=== PATIENT | female | born 1935 | race Hispanic/Latino ===

== ENCOUNTER 2017-05-07 10:56 | Inpatient (IN) | payer MEDICARE, BC ==
[2017-05-07 10:58] VITALS: BMI 29.2
--- NOTE | 2017-05-07 12:41 | ED PDOC ---
HPI: Trauma/Fall - HPI Time Seen by Provider: 05/07/17 11:08 Chief Complaint (Nursing): Trauma Chief Complaint (Provider): fall History Per: Patient History/Exam Limitations: no limitations Additional Complaint(s): 81yo F in ED for eval of fall injuries sustained yesterday. daughter states fall was witness-fell onto left side of arm, injured face and head. admitted to headache yesterday. n longer c/o VALLECILLO. daughter states pt did not eat well yesterday. admits to left wrist pain/swelling. facial swelling/.bruising to left side negative for: dizziness, nausea vomiting chest pain sob, change in gait, speech mentation weakness in UE/LE. Past Medical History Reviewed: Historical Data, Nursing Documentation, Vital Signs Vital Signs: Last Vital Signs Temp 99.2 F 05/07/17 11:17 Pulse 85 05/07/17 11:17 Resp 18 05/07/17 11:17 BP 153/74 H 05/07/17 11:17 Pulse Ox 100 05/07/17 11:17 - Medical History PMH: No Chronic Diseases - Family History Family History: States: No Known Family Hx - Home Medications Home Medications: Ambulatory Orders Medication Instructions Recorded No Known Home Med 05/07/17 - Allergies Allergies/Adverse Reactions: Allergies Allergy/AdvReac Type Severity Reaction Status Date / Time No Known Allergies Allergy Verified 05/07/17 11:17 Review of Systems ROS Statement: Except As Marked, All Systems Reviewed And Found Negative Constitutional: Negative for: Weakness Musculoskeletal: Positive for: Arm Pain, Leg Pain Physical Exam - Reviewed Nursing Documentation Reviewed: Yes Vital Signs Reviewed: Yes - Physical Exam Appears: Positive for: Well, Non-toxic, No Acute Distress Head Exam: Positive for: ATRAUMATIC, NORMAL INSPECTION, NORMOCEPHALIC Skin: Positive for: Normal Color, Warm, DRY Eye Exam: Positive for: EOMI, PERRL, Other (burising noted to left side of face swelling noted to left side of face. step off noted to left orbital tenenressnoted. no hypehma no subcongjtival hemmorrage noted. ) ENT: Positive for: Normal ENT Inspection, Other (no active bleeding in nares, no defomrity to nasal bridge) Cardiovascular/Chest: Positive for: Regular Rate, Rhythm Respiratory: Positive for: CNT, Normal Breath Sounds Gastrointestinal/Abdominal: Positive for: Normal Exam, Bowel Sounds, Soft Back: Positive for: Normal Inspection Extremity: Positive for: Other (left wrist: swelling, bruising, dec ROM, nuerovasc intact) Neurologic/Psych: Positive for: Alert, Oriented - Laboratory Results Result Diagrams: 05/07/17 12:43 05/07/17 12:43 - ECG O2 Sat by Pulse Oximetry: 100 - Radiology X-Ray: Interpreted by Me (displaced fx to distal radius/ulnar), Read By Radiologist - CT Scan/US head/maxillofacial Other Rad Studies (CT/US): Radiology Report Reviewed (no ICH, Mutiple fx to left sided face) - Progress ED Course And Treament: PT will get xray,of wrist, CT of face/head, pt offered Tylenol but refuses pain control. ice applied to affected area. ptwill get labs and EKG. Pt will be given IV ancef. Pt received consult to help with at home living. pt currently lives alone, daughter is concerned for pt well being and safety home alone. PT is refusing all medical intervention. Pt offered admission for surgical intervention of wrist and for severe anemia(hgb:8.0) and multiple fx with left side of face. but pt is refusing. pt is alert and is able to pass the MMS exam. CN 2-12 is intact. pt with coherent speech. Marquez aware of case. however there is significant concern for pt capacity MD [place]-management advisor will come and evaluate pt capacity to make medical decisions-and has deemed pt unable to make decisions, medically. Pt does not have medical capacity. - Physician Consult Information Outcome Of Conversation: broderick paged. pt will be placed in sugar tong splint.pt will need surgery and has an appointment on may 11 at 830am Medical Decision Making Medical Decision Making: Pt will be admitted for severe symptomatic anemia, multiple facial fractures and wrist fracture to MD Suni with Broderick consult PT will get ATivan 1mg pt is refusing to cooperate with medical testing and treatment. Pt without evidence of entrapment, EOMI and no c/o diplopia. consult made to [facility]. [facility]-spoke with MD Constance ([facility]) states that pt facial fractures can be followed up as an outpt in 1 week. advised pt not to blow nose and to use decongestants. considering pt has other serious conditions that take precedent at this time ie severe anemia and wrist fracture, pt will benefit from being in [facility] as an inpt to attend to more pressing medical conditions and f/u as an outpt with [facility]. pt family understands this. MD Diana made aware. Disposition - Clinical Impression Clinical Impression: Severe anemia, Ulnar fracture, Radius fracture, Head injury, Orbital floor fracture, Maxillary fracture, Hip injury - Patient ED Disposition Is Patient to be Admitted: Yes - Disposition Disposition Time: 16:45 Condition: FAIR - Pt Status Changed To: Hospital Disposition Of: Inpatient - Admit Certification Admit to Inpatient:: After my assessment, the patient will require hospitalization for at least two midnights. This is because of the severity of symptoms shown, intensity of services needed, and/or the medical risk in this patient being treated as an outpatient. - POA Present On Arrival: Falls Or Trauma
--- NOTE | 2017-05-07 12:48 | CT ---
PROCEDURE: CT HEAD WITHOUT CONTRAST. HISTORY: head injury COMPARISON: None available. TECHNIQUE: Axial computed tomography images were obtained through the head/brain without intravenous contrast. Radiation dose: Total exam DLP = 993.49 mGy-cm. This CT exam was performed using one or more of the following dose reduction techniques: Automated exposure control, adjustment of the mA and/or kV according to patient size, and/or use of iterative reconstruction technique. FINDINGS: HEMORRHAGE: No intracranial hemorrhage. BRAIN: No mass effect or edema. Mild atrophy. 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 There are foci of low attenuation at the basal ganglia bilaterally likely representing combination of chronic microvascular ischemic disease and small old lacunar infarcts. VENTRICLES: Unremarkable. No hydrocephalus. CALVARIUM: Unremarkable. PARANASAL SINUSES: There is almost complete opacification of the left maxillary sinus likely due to fracture in the anterior wall of the maxillary sinus and floor of the left orbit. MASTOID AIR CELLS: Partial opacification of the left mastoid is also noted. OTHER FINDINGS: The sella turcica is [id number] enlarged could be due to empty sella variant. IMPRESSION: No evidence of acute intracranial hemorrhage. Findings suspicious for bilateral frontal hygromas. Periventricular foci of hypodensity may represent a combination of chronic microvascular ischemic disease and old lacunar infarcts. Opacification of the left maxillary sinus could be due to fracture and hemorrhage in the maxillary sinus. Partial opacification of the left mastoid.
[2017-05-07 12:51] LABS: BASO % 0.2 % (0.0-2.0); LYMPH # 0.6 K/uL (1.0-4.3); LYMPH % 16.6 % (20.0-40.0); MEAN CELL VOLUME 121.7 fl (81.0-99.0); MEAN CORPUSCULAR HEMOGLOBIN 40.7 pg (27.0-31.0); MEAN CORPUSCULAR HGB CONC 33.4 g/dL (33.0-37.0); MEAN PLATELET VOLUME 10.4 fl (7.2-11.7); MONO # 0.2 K/uL (0.0-0.8); MONO % 4.4 % (0.0-10.0); NEUT # 2.7 K/uL (1.8-7.0); NEUT % 78.8 % (50.0-75.0); NRBC % 0.2 % (0.0-0.0); RBC 1.97 Mil/uL (3.80-5.20); RED CELL DISTRIBUTION WIDTH 18.4 % (11.5-14.5); WHITE BLOOD COUNT 3.4 K/uL (4.8-10.8)
[2017-05-07 13:04] LABS: ALB/GLOB RATIO 1.4 (1.0-2.1); ALBUMIN 4.4 g/dL (3.5-5.0); ALT/SGPT 34 U/L (9-52); AST/SGOT 32 U/L (14-36); BLOOD UREA NITROGEN 26 mg/dl (7-17); CALCIUM 9.1 mg/dL (8.4-10.2); GFR AFRICAN-AMERICAN > 60; GFR NON-AFRICAN AMERICAN > 60
[2017-05-07 13:08] LABS: INR 1.4 (0.9-1.2); PARTIAL THROMBOPLASTIN TIME 26.4 Seconds (25.6-37.1); PROTHROMBIN TIME 15.9 Seconds (9.8-13.1)
--- NOTE | 2017-05-07 13:23 | CT ---
PROCEDURE: CT MAXILLOFACIAL BONES WITHOUT CONTRAST HISTORY: facial injury COMPARISON: None TECHNIQUE: Contiguous axial CT images of the maxillofacial bones were obtained. Coronal and sagittal reformats were generated. Radiation dose: Total exam DLP = 693.28 mGy-cm. This CT exam was performed using one or more of the following dose reduction techniques: Automated exposure control, adjustment of the mA and/or kV according to patient size, and/or use of iterative reconstruction technique. FINDINGS: NASAL BONES: Unremarkable. ORBITS: There is a nondisplaced left orbital floor fracture. There is fracture of the lateral wall of the left orbit, likely along the zygomatic 0 frontal suture line. The suture is minimally diastatic. The orbital floor fracture extends far posteriorly. There is fracture of the lateral wall of the left orbit with displacement. This is contiguous anteriorly with the orbital floor fracture. There is fracture of the anterior wall of the left maxillary sinus, depressed. It is comminuted. It is contiguous with the orbital floor fracture. The lamina papyracea appears intact. The zygomatic arches are intact. PARANASAL SINUSES/ MASTOIDS: Extensive fluid in left maxillary sinus. No evidence of sinusitis elsewhere. MAXILLA: As noted above, fracture anterior left maxillary sinus fracture. Additional fracture described above. MANDIBLE/ TEMPOROMANDIBULAR JOINTS: Unremarkable. SKULL BASE: Unremarkable. TEMPORAL BONES: Soft tissue density in left external auditory canal, possibly cerumen. OTHER FINDINGS: None. IMPRESSION: Multiple left facial fractures including left orbital floor anterior and lateral foster of the left maxillary sinus. Minimal diastases of the left zygomaticofrontal suture. Extensive fluid/blood in left maxillary antrum.
[2017-05-07] MEDS: ceFAZolin 1 GM in Sodium Chloride 0.9% 100 ML IVPB STA ×3 (13:46→14:20)
--- NOTE | 2017-05-07 14:15 | CP.PCM.CON ---
History of Present Illness - History of Present Illness History of Present Illness: Psychiatry Consult called to evaluate for capacity 81yo F in ED for eval of fall injuries sustained yesterday. daughter states fall was witness-fell onto left side of arm, injured face and head. admitted to headache yesterday. n longer c/o VALLECILLO. daughter states pt did not eat well yesterday. Group Product Manager explained to the patient that she needs hospitalization and treatment s/ p fall for arm/face/head injuries and acute anemia. Patient does not believe that she has any signficant medical issues and does not want to stay in the hospital. She was not able to appreciate the severity of her medical condition. She was not able to weigh the risks and benefits of treatment. When asked what could possible happen if she went home without medical treatment , her response was "nothing." A + O x self, [facility], April 2017. -Patient does NOT have capacity to refuse medical treatment at this time. She does not understand the risks of not receiving treatment. Additionally, she does not have anyone who can monitor her at home and her family does not even have keys to her home. Patient has poor insight into her medical issue and need for treatment. -Would recommend inpatient medical hospitalization as recommended by the primary medical team as the patient can does not have capacity to refuse medical treatment at this time. Past Patient History - Past Social History Smoking Status: Never Smoked - PSYCHIATRIC Hx Substance Use: No - SURGICAL HISTORY Hx Surgeries: No Meds Allergies/Adverse Reactions: Allergies Allergy/AdvReac Type Severity Reaction Status Date / Time No Known Allergies Allergy Verified 05/07/17 11:17 - Medications Medications: Current Medications Cefazolin Sodium 1 gm/ Sodium (Chloride) 100 mls @ 100 mls/hr IVPB STAT STA Stop: 05/07/17 14:35 Last Admin: 05/07/17 13:53 Dose: Not Given Results - Vital Signs Recent Vital Signs: Last Vital Signs Temp 99.2 F 05/07/17 11:17 Pulse 85 05/07/17 11:17 Resp 18 05/07/17 11:17 BP 153/74 H 05/07/17 11:17 Pulse Ox 100 05/07/17 14:08 - Labs Result Diagrams: 05/07/17 12:43 05/07/17 12:43 Labs: Laboratory Results - last 24 hr 05/07/17 05/07/1705/07/17 12:43 12:43 12:43 WBC 3.4 L RBC 1.97 L Hgb 8.0 L Hct 24.0 L MCV 121.7 H MCH 40.7 H MCHC 33.4 RDW 18.4 H Plt Count 81 L MPV 10.4 Neut % (Auto) 78.8 H Lymph % (Auto) 16.6 L [place] % (Auto) 4.4 Eos % (Auto) 0.0 Baso % (Auto) 0.2 Neut # 2.7 Lymph # 0.6 L [place] # 0.2 Eos # 0.0 Baso # 0.0 PT 15.9 H INR 1.4 H APTT 26.4 Sodium 144 Potassium 3.9 Chloride 107 Carbon Dioxide 27 Anion Gap 13 BUN 26 H Creatinine 0.7 Est GFR ( Amer) > 60 Est GFR (Non-Af Amer) > 60 Random Glucose 117 H Calcium 9.1 Total Bilirubin 3.4 H AST 32 ALT 34 Alkaline Phosphatase 66 Troponin I 0.0130 Total Protein 7.5 Albumin 4.4 Globulin 3.2 Albumin/Globulin Ratio 1.4
--- NOTE | 2017-05-07 15:02 | RAD ---
PROCEDURE: Left Wrist Radiographs. HISTORY: wrist injury COMPARISON: None. FINDINGS: BONES: Acute comminuted fracture at the distal left radius extending to the articular surface of the radiocarpal joint and associated with mild displaced bony fragment laterally. There is also displaced acute fracture at the styloid process of the distal ulna JOINTS: Normal. No dislocation. SOFT TISSUES: Diffuse soft tissue swelling OTHER FINDINGS: Diffuse osteopenia. IMPRESSION: Acute comminuted fractures at the distal left radius and ulna as described above.
--- NOTE | 2017-05-07 15:03 | RAD ---
PROCEDURE: Radiographs of the Left Forearm HISTORY: arm injury COMPARISON: None available. TECHNIQUE: Frontal and lateral views obtained. FINDINGS: BONES: Acute comminuted displaced fracture at the distal left radius and ulna. JOINT SPACES: Unremarkable. OTHER FINDINGS: None. IMPRESSION: Acute comminuted displaced fracture at the distal left radius and styloid process of the distal ulna.
--- NOTE | 2017-05-07 17:01 | RAD ---
PROCEDURE: Radiographs of the pelvis and bilateral hips HISTORY: hip injury COMPARISON: None. FINDINGS: BONES: Pelvis: Unremarkable. Right hip:Unremarkable. Left hip:No evidence of fracture. Evaluation somewhat limited due to the lack of a true external rotation view. JOINTS: Right hip: Unremarkable. Left hip: Unremarkable. Sacroiliac Joints: Unremarkable. Pubic symphysis: Unremarkable. SOFT TISSUES: Normal. OTHER FINDINGS: None. IMPRESSION: No evidence of fracture or dislocation. Evaluation of left hip is limited as described above.
[2017-05-07 17:24] LABS: IRON 31 ug/dL (37-170)
[2017-05-07 17:33] LABS: % IRON SATURATION 14 % (20-55); TOTAL IRON BINDING CAPACITY 216 ug/dL (250-450)
--- NOTE | 2017-05-07 22:53 | CP.PCM.CON ---
History of Present Illness - History of Present Illness History of Present Illness: 81 Y/O SP FALL WITH HEAD AND LEFT ARM TRAUMA. PT TRIPPED AND FELL. SHE DENIES PALP, LH, DIZZINESS, CP, SOB, PRIOR HX OF CAD OR ARRYTHMIAS. PT DENIES HTN, HIGH CHOL, DM, HOWEVER SHE DOES NOT GO TO DOCTORS FOR EVAL. PT DOES HAVE VISUAL ISSUES AND DOES NOT WEAR HER GLASSES. THIS IS PTS 3RD FALL IN 6 YEARS. CURRENTLY ADMITS TO PAIN IN LEFT FACE AND ARM. Past Patient History - Past Medical History & Family History Past Medical History?: No - Past Social History Smoking Status: Never Smoked - CARDIAC Hx Cardiac Disorders: No - PULMONARY Hx Respiratory Disorders: No - NEUROLOGICAL Hx Neurological Disorder: No - HEENT Hx HEENT Problems: No - RENAL Hx Chronic Kidney Disease: No - ENDOCRINE/METABOLIC Hx Endocrine Disorders: No - HEMATOLOGICAL/ONCOLOGICAL Hx Blood Disorders: No Hx AIDS: No Hx Human Immunodeficiency Virus (HIV): No - INTEGUMENTARY Hx Dermatological Problems: No - MUSCULOSKELETAL/RHEUMATOLOGICAL Hx Musculoskeletal Disorders: No Hx Falls: Yes - GASTROINTESTINAL Hx Gastrointestinal Disorders: No - GENITOURINARY/GYNECOLOGICAL Hx Genitourinary Disorders: No - PSYCHIATRIC Hx Psychophysiologic Disorder: No Hx Substance Use: No - SURGICAL HISTORY Hx Surgeries: No - ANESTHESIA Hx Anesthesia: Yes Hx Anesthesia Reactions: No Hx Malignant Hyperthermia: No Has any member of the family had a problem w/ anesthesia?: No Meds Allergies/Adverse Reactions: Allergies Allergy/AdvReac Type Severity Reaction Status Date / Time No Known Allergies Allergy Verified 05/07/17 11:17 - Medications Medications: Current Medications Acetaminophen (Tylenol 325mg Tab) 650 mg PO Q6 PRN PRN Reason: Pain, moderate (4-7) Last Admin: 05/07/17 20:35 Dose: 650 mg Cyanocobalamin (Vitamin B12 1000 Mcg/Ml Inj) 1,000 mcg IM DAILY PATRICK Last Admin: 05/07/17 22:08 Dose: 1,000 mcg Physical Exam - Constitutional Appears: Unkempt - Head Exam Additional comments: LARGE LEFT FACIAL BRUISE WITH EDEMA. - Eye Exam Eye Exam: Periorbital swelling, Periorbital tenderness - ENT Exam ENT Exam: Mucous Membranes Moist, Normal Exam - Neck Exam Neck exam: Positive for: Normal Inspection. Negative for: Full Rom, Lymphadenopathy, Meningismus, Tenderness, Thyromegaly - Respiratory Exam Respiratory Exam: Clear to Auscultation Bilateral, NORMAL BREATHING PATTERN. absent: Accessory Muscle Use, Chest Wall Tenderness, Decreased Breath Sounds, Prolonged Expiratory Phase, Rales, Rhonchi, Wheezes, Respiratory Distress, Stridor - Cardiovascular Exam Cardiovascular Exam: REGULAR RHYTHM, +S1, +S2, Systolic Murmur. absent: Bradycardia, Tachycardia, Clicks, Diastolic murmur, Gallop, Irregular Rhythm, JVD, RRR, Rubs, +S4 - GI/Abdominal Exam GI & Abdominal Exam: Normal Bowel Sounds, Soft - Rectal Exam Rectal Exam: Deferred - Extremities Exam Additional comments: LUE IS CDI. L KNEE TENDERNESS - Back Exam Back exam: NORMAL INSPECTION. absent: CVA tenderness (L), CVA tenderness (R), FULL ROM, muscle spasm, paraspinal tenderness, rash noted, tenderness, vertebral tenderness - Neurological Exam Neurological exam: Alert, Oriented x3 - Psychiatric Exam Psychiatric exam: Normal Affect, Normal Mood - Skin Skin Exam: Dry, Intact, Normal Color, Warm Results - Vital Signs Recent Vital Signs: Last Vital Signs Temp 98.4 F 05/07/17 20:06 Pulse 72 05/07/17 20:06 Resp 18 05/07/17 20:06 BP 150/74 05/07/17 20:06 Pulse Ox 99 05/07/17 20:06 - Labs Result Diagrams: 05/07/17 12:43 05/07/17 12:43 Labs: Laboratory Results - last 24 hr 05/07/17 05/07/17 05/07/17 14:30 15:52 16:00 Iron 31 L TIBC 216 L % Saturation 14 L Ferritin 231.0 Troponin I Vitamin B12 < 159 L Blood Type A POSITIVE Blood Type Confirm Antibody Screen Negative Crossmatch See Detail BBK History Checked No verified bt 05/07/17 05/07/17 16:59 21:30 Iron TIBC % Saturation Ferritin Troponin I < 0.0120 Vitamin B12 Blood Type Blood Type Confirm A POSITIVE Antibody Screen Crossmatch BBK History Checked Assessment & Plan (1) Fall Status: Acute (2) Elevated BP without diagnosis of hypertension Status: Acute (3) Tachycardia Status: Acute (4) RBBB Status: Acute (5) Head injury Status: Acute (6) Maxillary fracture Status: Acute (7) Orbital floor fracture Status: Acute (8) Radius fracture Status: Acute (9) Severe anemia Status: Acute (10) Ulnar fracture Status: Acute (11) Pancytopenia Status: Acute - Assessment and Plan (Free Text) Plan: PT HAS NO PRIOR CARDIAC WORK UP. THIS EVENT DOES NOT APPEAR TO BE SYNCOPE OR RELATED TO HYPOTENSION ETC.... GIVEN ABN EKG AND BP WILL CHECK ECHO PTS BP MAY BE SECONDARY TO TRAUMA AND PAIN. ADDITIONALLY PT HAS PANCYTOPENIA AND SEVERE FE DEF AND B12 DEF. WOULD CONSIDER HEME CONSULT, FE AND B12 WOULD CONSIDER GENTLE HYDRATION GIVEN PRERENAL STATE WOULD CONSIDER EVAL FOR OSTEOPOROSIS. CONTINUE TELE WILL FOLLOW. NO NEED TO TREAT WITH ANTIHYPERTENSIVE MEDS MONITOR LYTES AND MAG 90 MIN TOTAL CARE TIME.
[2017-05-08 07:50] LABS: HEMOGLOBIN 8.7 g/dL (12.0-16.0); MEAN CELL VOLUME 114.9 fl (81.0-99.0); MEAN CORPUSCULAR HEMOGLOBIN 39.9 pg (27.0-31.0); MEAN CORPUSCULAR HGB CONC 34.8 g/dL (33.0-37.0); RBC 2.18 Mil/uL (3.80-5.20); RED CELL DISTRIBUTION WIDTH 22.3 % (11.5-14.5); WHITE BLOOD COUNT 3.4 K/uL (4.8-10.8)
[2017-05-08 07:57] LABS: ALB/GLOB RATIO 1.3 (1.0-2.1); ALBUMIN 3.6 g/dL (3.5-5.0); ALT/SGPT 33 U/L (9-52); AST/SGOT 28 U/L (14-36); BILIRUBIN,DIRECT 0.5 mg/ml (0.0-0.4); BLOOD UREA NITROGEN 19 mg/dl (7-17); CALCIUM 8.7 mg/dL (8.4-10.2); GFR AFRICAN-AMERICAN > 60; GFR NON-AFRICAN AMERICAN > 60; HDL CHOLESTEROL 30 MG/DL (30-70); MAGNESIUM 2.1 MG/DL (1.6-2.3)
[2017-05-08 08:08] LABS: LDL CHOLESTEROL 68 mg/dL (0-129)
[2017-05-08 08:26] LABS: T3 0.817 nmol/L (1.49-2.60)
--- NOTE | 2017-05-08 10:32 | CARD ---
APPROVED REPORT EKG Measurement Heart [id number] AR [id number] [id number] <Conclusion> Normal sinus rhythm Right bundle branch block Cannot rule out Inferior infarct, age undetermined Abnormal ECG
--- NOTE | 2017-05-08 12:03 | CARD ---
APPROVED REPORT EXAM: Two-dimensional and M-mode echocardiogram with Doppler and color Doppler. Other Information Quality : GoodRhythm : NSR INDICATION Abnormal EKG/Arrhythmia 2D DIMENSIONS IVSd0.78 (0.7-1.1cm)LVDd5.11 (3.9-5.9cm) LVOT Diameter2.01 (1.8-2.4cm)PWd0.94 (0.7-1.1cm) IVSs1.28 (0.8-1.2cm)LVDs3.33 (2.5-4.0cm) FS (%) 34.8 %PWs1.25 (0.8-1.2cm) M-Mode DIMENSIONS Left Atrium (MM)3.56 (2.5-4.0cm)IVSd0.88 (0.7-1.1cm) Aortic Root3.15 (2.2-3.7cm)LVDd6.12 (4.0-5.6cm) Aortic Cusp Exc.1.76 (1.5-2.0cm)PWd0.91 (0.7-1.1cm) IVSs1.97 cmFS (%) 50 % LVDs3.06 (2.0-3.8cm)PWs1.12 cm Mitral Valve MV E Cuzlwngt68.1cm/sMV DECEL [id number] A Wrgiwqxc24.2cm/s MV CPU88qoE/A ratio0.8MVA (PHT)2.91cm2 TDI Lateral E' Peak V12.14cm/sMedial E' Peak V9.13cm/sE/Lateral E'5.0 E/Medial E'6.7 Pulmonary Valve PV Peak Kroxyecf640.4cm/s Tricuspid Valve TR Peak Ckqvuqrv013ew/sRAP PBLOJGSI76qqYlEF Peak Gr.27mmHg JEBC88jyOr LEFT VENTRICLE The Left Ventricle is mildly dilated. There is normal left ventricular wall thickness. The left ventricular function is normal. The left ventricular ejection fraction is - 65-70%. There is normal LV segmental wall motion. Transmitral Doppler flow pattern is Grade I-abnormal relaxation pattern. No left ventricle thrombus noted on this study. There is no ventricular septal defect visualized. There is no left ventricular aneurysm. There is no mass noted in the left ventricle. RIGHT VENTRICLE The right ventricle is normal size. There is normal right ventricular wall thickness. The right ventricular systolic function is normal. ATRIA The left atrium is mildly dilated. There is no thrombus suspected in the left atrium. The right atrium size is normal. The interatrial septum is intact with no evidence for an atrial septal defect. AORTIC VALVE The aortic valve is normal in structure and function. No aortic regurgitation is present. There is no aortic valvular stenosis. MITRAL VALVE The mitral valve is normal in structure and function. There is no evidence of mitral valve prolapse. There is no mitral valve stenosis. Mitral regurgitation is trace. TRICUSPID VALVE The tricuspid valve is normal in structure and function. There is mild tricuspid regurgitation. Right ventricular systolic pressure is estimated at 36 mmHg. There is no tricuspid valve prolapse or vegetation. There is no tricuspid valve stenosis. PULMONIC VALVE The pulmonic valve is not well visualized. There is mild pulmonic valvular regurgitation. GREAT VESSELS The aortic root is normal in size. The IVC collapses <50% with inspiration. PERICARDIAL EFFUSION The pericardium appears normal. There is no pleural effusion. <Conclusion> The Left Ventricle is mildly dilated and has normal wall thickness. The left ventricular function is normal. The left ventricular ejection fraction is - 65-70%. The left atrium is mildly dilated. The mitral, aortic and tricuspid valves are normal. There is trace mitral regurgitation and mild tricuspid regurgitation.
--- NOTE | 2017-05-08 12:25 | CP.PCM.PN ---
Subjective - Date & Time of Evaluation Date of Evaluation: 05/08/17 Time of Evaluation: 15:36 - Subjective Subjective: denies cp or dizziness echo read as nml ef and no sig abn Objective - Vital Signs/Intake and Output Vital Signs (last 24 hours): Temp Pulse Resp BP Pulse Ox 98.9 F 69 18 162/79 H 97 05/08/17 08:00 05/08/17 08:00 05/08/17 08:00 05/08/17 08:00 05/08/17 08:00 - Medications Medications: Current Medications Acetaminophen (Tylenol 325mg Tab) 650 mg PO Q6 PRN PRN Reason: Pain, moderate (4-7) Last Admin: 05/07/17 20:35 Dose: 650 mg Acetaminophen (Tylenol 325mg Tab) 325 mg PO Q4 PRN PRN Reason: Pain, Mild (1-3) Last Admin: 05/08/17 09:57 Dose: 325 mg Cyanocobalamin (Vitamin B12 1000 Mcg/Ml Inj) 1,000 mcg IM DAILY PATRICK Last Admin: 05/08/17 08:57 Dose: 1,000 mcg - Labs Labs: 05/08/17 06:00 05/08/17 06:00 PT 15.9 Seconds (9.8-13.1) H 05/07/17 12:43 INR 1.4 (0.9-1.2) H 05/07/17 12:43 APTT 26.4 Seconds (25.6-37.1) 05/07/17 12:43 Assessment and Plan (1) Fall Status: Acute (2) Elevated BP without diagnosis of hypertension Status: Acute (3) Tachycardia Status: Acute (4) RBBB Status: Acute (5) Head injury Status: Acute (6) Maxillary fracture Status: Acute (7) Orbital floor fracture Status: Acute (8) Radius fracture Status: Acute (9) Severe anemia Status: Acute (10) Ulnar fracture Status: Acute (11) Pancytopenia Status: Acute - Assessment and Plan (Free Text) Plan: echo as above control pain no arrythmias on tele ADDITIONALLY PT HAS PANCYTOPENIA AND SEVERE FE DEF AND B12 DEF. WOULD CONSIDER HEME CONSULT, FE AND B12 WOULD CONSIDER GENTLE HYDRATION GIVEN PRERENAL STATE WOULD CONSIDER EVAL FOR OSTEOPOROSIS. CONTINUE TELE NO NEED TO TREAT WITH ANTIHYPERTENSIVE MEDS MONITOR LYTES AND MAG 90 MIN TOTAL CARE TIME.
[2017-05-08] MEDS ORDERED: Iron Sucrose 100 mg/5 ml Inj IVP SCH (13:15)
--- NOTE | 2017-05-08 13:40 | CP.PCM.HP ---
History of Present Illness - History of Present Illness History of Present Illness: CC: S/P Fall and injury multiple sites. 81 y/o F brought to [facility], [place] by EMS and admitted to hospital due to Multiple Fax associated to tripped and fall at home, sustained day [employer]. Pt fell onto her L body side, there after c/o of pain on L facial and head, L arm and L wrist, L hip. pain was constant, throbbing moderate intensity 4:10 with no relief. Worsening symptoms: Found with severe anemia Hgb: 8.0, WBC: 3.4, headache. Aggravated factor: Multiple Fx. Not eating well from fall date. Pt denied: Fever, chills, n/v/d, abdominal pain, urinary symptoms, dizziness, syncope, SOB, cough, CP, palpitations, sick contact. PMHx: Falls, no chronic disease. Echo showed: LV normal, LVEF: 65-70-%. EKG: Normal sinus rhythm, RBBB. Inferior infarct age undetermined. Head CT: Suspicious for b/l frontal Hygromas. Periventricular foci of hypodensity may represent chronic microvascular ischemic disease and old lacunar infarct. Opacification L Maxillary sinus could be due to fracture and hemorrhage in the area. Forearm X-Ray: Acute comminuted displaced fracture at the distal radius and ulnar. Maxillofacial CT: Multiple L facial fractures including L Orbital floor, anterior and lateral foster of the left Maxillary sinus. Wrist X-Ray: Acute comminute fracture of the distal left radius and ulnar. Hip and Pelvis X-Ray: No Fx. CXR: No active disease. Present on Admission - Present on Admission Any Indicators Present on Admission: No Review of Systems - Constitutional Constitutional: Frequent Falls, Headache, Other (decreased appetite.) - EENT Eyes: Other (negative) Ears: Other (negative) Nose/Mouth/Throat: Other (negative) - Cardiovascular Cardiovascular: Other (negative) - Gastrointestinal Gastrointestinal: Other (negative) - Genitourinary Genitourinary: Other (negative) - Musculoskeletal Musculoskeletal: Other (pain multiple sites 2nd to fall.) - Integumentary Integumentary: Other (negative) - Neurological Neurological: Other (negative) - Psychiatric Psychiatric: Other (negative) - Endocrine Endocrine: Other (negative) - Hematologic/Lymphatic Hematologic: Other (negative) Past Patient History - Past Medical History & Family History Past Medical History?: No Pertinent Family History: Unknown - Past Social History Smoking Status: Never Smoked Alcohol: None Drugs: Denies Home Situation {Lives}: Alone - CARDIAC Hx Cardiac Disorders: No - PULMONARY Hx Respiratory Disorders: No - NEUROLOGICAL Hx Neurological Disorder: No - HEENT Hx HEENT Problems: No - RENAL Hx Chronic Kidney Disease: No - ENDOCRINE/METABOLIC Hx Endocrine Disorders: No - HEMATOLOGICAL/ONCOLOGICAL Hx Blood Disorders: No Hx AIDS: No Hx Human Immunodeficiency Virus (HIV): No - INTEGUMENTARY Hx Dermatological Problems: No - MUSCULOSKELETAL/RHEUMATOLOGICAL Hx Musculoskeletal Disorders: No Hx Falls: Yes - GASTROINTESTINAL Hx Gastrointestinal Disorders: No - GENITOURINARY/GYNECOLOGICAL Hx Genitourinary Disorders: No - PSYCHIATRIC Hx Psychophysiologic Disorder: No Hx Substance Use: No - SURGICAL HISTORY Hx Surgeries: No - ANESTHESIA Hx Anesthesia: Yes Hx Anesthesia Reactions: No Hx Malignant Hyperthermia: No Has any member of the family had a problem w/ anesthesia?: No Meds Allergies/Adverse Reactions: Allergies Allergy/AdvReac Type Severity Reaction Status Date / Time No Known Allergies Allergy Verified 05/07/17 11:17 Physical Exam - Constitutional Appears: Confused - Head Exam Additional comments: L Facial swelling with large L facial bruising. - Eye Exam Eye Exam: Conjunctival injection (L eye), Periorbital swelling - ENT Exam ENT Exam: Normal Oropharynx - Neck Exam Neck exam: Positive for: Normal Inspection - Respiratory Exam Respiratory Exam: NORMAL BREATHING PATTERN - Cardiovascular Exam Cardiovascular Exam: REGULAR RHYTHM - GI/Abdominal Exam GI & Abdominal Exam: Normal Bowel Sounds, Soft - Extremities Exam Extremities exam: Positive for: tenderness (L arm, L wrist, L knee, L hip.) Additional comments: L arm splint with stacy wrap. L arm neuromuscular status distal good. Nails Onycomycosis - Back Exam Back exam: NORMAL INSPECTION - Neurological Exam Neurological exam: Alert (Oriented x2, confused, forgetful) - Psychiatric Exam Psychiatric exam: Normal Mood - Skin Skin Exam: Warm Results - Vital Signs Recent Vital Signs: Last Vital Signs Temp 98.9 F 05/08/17 08:00 Pulse 69 05/08/17 08:00 Resp 18 05/08/17 08:00 BP 162/79 H 05/08/17 08:00 Pulse Ox 97 05/08/17 08:00 reviewed Adiel - Labs Result Diagrams: 05/10/17 16:06 05/08/17 06:00 Labs: Laboratory Results - last 24 hr 05/07/17 05/07/17 05/07/17 14:30 15:52 16:00 WBC RBC Hgb Hct MCV MCH MCHC RDW Plt Count Retic Count Sodium Potassium Chloride Carbon Dioxide Anion Gap BUN Creatinine Est GFR ( Amer) Est GFR (Non-Af Amer) Random Glucose Calcium Magnesium Iron 31 L TIBC 216 L % Saturation 14 L Ferritin 231.0 Total Bilirubin Direct Bilirubin AST ALT Alkaline Phosphatase Lactate Dehydrogenase Troponin I Total Protein Albumin Globulin Albumin/Globulin Ratio Triglycerides Cholesterol LDL Cholesterol Direct HDL Cholesterol Vitamin B12 < 159 L Free T4 Thyroxine (T4) Total T3 TSH 3rd Generation Blood Type A POSITIVE Blood Type Confirm Antibody Screen Negative Crossmatch See Detail BBK History Checked No verified bt 05/07/17 05/07/17 05/08/17 16:59 21:30 06:00 WBC RBC Hgb Hct MCV MCH MCHC RDW Plt Count Retic Count Sodium 143 Potassium 3.5 L Chloride 108 H Carbon Dioxide 29 Anion Gap 10 BUN 19 H Creatinine 0.6 L Est GFR ( Amer) > 60 Est GFR (Non-Af Amer) > 60 Random Glucose 92 Calcium 8.7 Magnesium 2.1 Iron TIBC % Saturation Ferritin Total Bilirubin 3.3 H Direct Bilirubin 0.5 H AST 28 ALT 33 Alkaline Phosphatase 57 Lactate Dehydrogenase 1217 H Troponin I < 0.0120 < 0.0120 Total Protein 6.4 Albumin 3.6 Globulin 2.8 Albumin/Globulin Ratio 1.3 Triglycerides 81 Cholesterol 115 LDL Cholesterol Direct 68 HDL Cholesterol 30 Vitamin B12 Free T4 Thyroxine (T4) 6.20 Total T3 0.817 L TSH 3rd Generation 3.59 Blood Type Blood Type Confirm A POSITIVE Antibody Screen Crossmatch BBK History Checked 05/08/17 05/08/17 06:00 06:00 WBC 3.4 L RBC 2.18 L Hgb 8.7 L Hct 25.0 L MCV 114.9 H D MCH 39.9 H MCHC 34.8 RDW 22.3 H Plt Count 61 L D Retic Count 0.9 Sodium Potassium Chloride Carbon Dioxide Anion Gap BUN Creatinine Est GFR ( Amer) Est GFR (Non-Af Amer) Random Glucose Calcium Magnesium Iron TIBC % Saturation Ferritin Total Bilirubin Direct Bilirubin AST ALT Alkaline Phosphatase Lactate Dehydrogenase Troponin I Total Protein Albumin Globulin Albumin/Globulin Ratio Triglycerides Cholesterol LDL Cholesterol Direct HDL Cholesterol Vitamin B12 Free T4 0.85 Thyroxine (T4) Total T3 TSH 3rd Generation Blood Type Blood Type Confirm Antibody Screen Crossmatch BBK History Checked reviewed J.P. - EKG Data EKG comments: reviewed J.P. - Imaging and Cardiology Chest x-ray Status: Report reviewed by me (Adiel) CT scan - head Status: Report reviewed by me (EnzoPErnestina) Additional comment: Echo, Maxillary CT, Forearm X Ray, all reviewed J.P. Assessment & Plan (1) Fall Status: Acute Priority: High (2) Head injury Status: Acute Priority: High (3) Hip injury Status: Acute Priority: High (4) Maxillary fracture Status: Acute Priority: High (5) Orbital floor fracture Status: Acute Priority: High (6) Radius fracture Status: Acute Priority: High (7) Ulnar fracture Status: Acute (8) Macrocytic anemia Status: Acute Priority: High (9) Elevated BP without diagnosis of hypertension Status: Acute Priority: High - Assessment and Plan (Free Text) Plan: Pt had 2 U PRBC and Hgb increased from 8.0 to to 8.7, Continue Tylenol and rest of Tx, Psychiatric and Cardiology consult appreciated, Ortho, GI and Hematology consult. - Date & Time Date: 05/08/17 Time: 13:00
--- NOTE | 2017-05-08 14:58 | RAD ---
HISTORY: NEW ADMIT COMPARISON: No prior. FINDINGS: LUNGS: No active pulmonary disease. PLEURA: No significant pleural effusion identified, no pneumothorax apparent. CARDIOVASCULAR: Normal. OSSEOUS STRUCTURES: No significant abnormalities. VISUALIZED UPPER ABDOMEN: Normal. OTHER FINDINGS: None. IMPRESSION: No active disease.
[2017-05-08 17:14] LABS: FOLATE 15.6 ng/mL
--- NOTE | 2017-05-09 01:02 | CP.PCM.CON ---
History of Present Illness - History of Present Illness History of Present Illness: 81 yo female admitted after falling at home and experiencing facial trauma. Found to have a macrocytic anemia/ Review of Systems - Review of Systems Systems not reviewed;Unavailable: Altered Mental Status Past Patient History - Past Medical History & Family History Past Medical History?: No - Past Social History Smoking Status: Never Smoked - CARDIAC Hx Cardiac Disorders: No - PULMONARY Hx Respiratory Disorders: No - NEUROLOGICAL Hx Neurological Disorder: No - HEENT Hx HEENT Problems: No - RENAL Hx Chronic Kidney Disease: No - ENDOCRINE/METABOLIC Hx Endocrine Disorders: No - HEMATOLOGICAL/ONCOLOGICAL Hx Blood Disorders: No Hx AIDS: No Hx Human Immunodeficiency Virus (HIV): No - INTEGUMENTARY Hx Dermatological Problems: No - MUSCULOSKELETAL/RHEUMATOLOGICAL Hx Musculoskeletal Disorders: No Hx Falls: Yes - GASTROINTESTINAL Hx Gastrointestinal Disorders: No - GENITOURINARY/GYNECOLOGICAL Hx Genitourinary Disorders: No - PSYCHIATRIC Hx Psychophysiologic Disorder: No Hx Substance Use: No - SURGICAL HISTORY Hx Surgeries: No - ANESTHESIA Hx Anesthesia: Yes Hx Anesthesia Reactions: No Hx Malignant Hyperthermia: No Has any member of the family had a problem w/ anesthesia?: No Meds Allergies/Adverse Reactions: Allergies Allergy/AdvReac Type Severity Reaction Status Date / Time No Known Allergies Allergy Verified 05/07/17 11:17 - Medications Medications: Current Medications Acetaminophen (Tylenol 325mg Tab) 650 mg PO Q6 PRN PRN Reason: Pain, moderate (4-7) Last Admin: 05/07/17 20:35 Dose: 650 mg Acetaminophen (Tylenol 325mg Tab) 325 mg PO Q4 PRN PRN Reason: Pain, Mild (1-3) Last Admin: 05/08/17 20:45 Dose: 325 mg Cyanocobalamin (Vitamin B12 1000 Mcg/Ml Inj) 1,000 mcg IM DAILY [facility] Last Admin: 05/08/17 08:57 Dose: 1,000 mcg Epoetin Ifeanyi (Procrit) 10,000 unit [place] [facility] [place] Sucrose 100 mg/ Sodium (Chloride) 105 mls @ 105 mls/hr IVPB DAILY [facility] Last Admin: 05/08/17 16:30 Dose: 105 mls/hr Physical Exam - Head Exam Additional comments: ecchymosis present due to falls - Eye Exam Eye Exam: Normal appearance Pupil Exam: PERRL - ENT Exam ENT Exam: Normal Exam - Neck Exam Neck exam: Positive for: Normal Inspection - Respiratory Exam Respiratory Exam: Clear to Auscultation Bilateral - Cardiovascular Exam Cardiovascular Exam: REGULAR RHYTHM - GI/Abdominal Exam GI & Abdominal Exam: Normal Bowel Sounds, Soft. absent: Tenderness Results - Vital Signs Recent Vital Signs: Last Vital Signs Temp 98.8 F 05/08/17 23:49 Pulse 63 05/08/17 23:49 Resp 19 05/08/17 23:49 BP 159/71 H 05/08/17 23:49 Pulse Ox 97 05/08/17 23:49 - Labs Result Diagrams: 05/08/17 06:00 05/08/17 06:00 Labs: Laboratory Results - last 24 hr 05/07/17 05/08/17 05/08/17 15:52 06:00 06:00 WBC 3.4 L RBC 2.18 L Hgb 8.7 L Hct 25.0 L MCV 114.9 H D MCH 39.9 H MCHC 34.8 RDW 22.3 H Plt Count 61 L D Retic Count 0.9 Sodium 143 Potassium 3.5 L Chloride 108 H Carbon Dioxide 29 Anion Gap 10 BUN 19 H Creatinine 0.6 L Est GFR ( Amer) > 60 Est GFR (Non-Af Amer) > 60 Random Glucose 92 Calcium 8.7 Magnesium 2.1 Total Bilirubin 3.3 H Direct Bilirubin 0.5 H AST 28 ALT 33 Alkaline Phosphatase 57 Lactate Dehydrogenase 1217 H Troponin I < 0.0120 Total Protein 6.4 Albumin 3.6 Globulin 2.8 Albumin/Globulin Ratio 1.3 Triglycerides 81 Cholesterol 115 LDL Cholesterol Direct 68 HDL Cholesterol 30 Folate 15.6 Free T4 Thyroxine (T4) 6.20 Total T3 0.817 L TSH 3rd Generation 3.59 Blood Type A POSITIVE Antibody Screen Negative Crossmatch See Detail BBK History Checked No verified bt 05/08/17 06:00 WBC RBC Hgb Hct MCV MCH MCHC RDW Plt Count Retic Count Sodium Potassium Chloride Carbon Dioxide Anion Gap BUN Creatinine Est GFR ( Amer) Est GFR (Non-Af Amer) Random Glucose Calcium Magnesium Total Bilirubin Direct Bilirubin AST ALT Alkaline Phosphatase Lactate Dehydrogenase Troponin I Total Protein Albumin Globulin Albumin/Globulin Ratio Triglycerides Cholesterol LDL Cholesterol Direct HDL Cholesterol Folate Free T4 0.85 Thyroxine (T4) Total T3 TSH 3rd Generation Blood Type Antibody Screen Crossmatch BBK History Checked Assessment & Plan (1) Macrocytic anemia Assessment and Plan: Macrocytic anemia due to low B12. B12 replenishment as per Hematology Status: Acute - Date & Time Date: 05/08/17 Time: 23:45
--- NOTE | 2017-05-09 12:19 | CP.PCM.PN ---
Subjective - Date & Time of Evaluation Date of Evaluation: 05/09/17 Time of Evaluation: 10:15 - Subjective Subjective: F/U Multiple Fx 2nd to s/p fall. Pt no c/o of pain in wrist of face. Objective - Vital Signs/Intake and Output Vital Signs (last 24 hours): Temp Pulse Resp BP Pulse Ox 98.9 F 74 18 175/91 H 97 05/09/17 09:00 05/09/17 09:00 05/09/17 09:00 05/09/17 09:00 05/09/17 09:00 - Medications Medications: Current Medications Acetaminophen (Tylenol 325mg Tab) 650 mg PO Q6 PRN PRN Reason: Pain, moderate (4-7) Last Admin: 05/07/17 20:35 Dose: 650 mg Acetaminophen (Tylenol 325mg Tab) 325 mg PO Q4 PRN PRN Reason: Pain, Mild (1-3) Last Admin: 05/08/17 20:45 Dose: 325 mg Cyanocobalamin (Vitamin B12 1000 Mcg/Ml Inj) 1,000 mcg IM DAILY [facility] Last Admin: 05/09/17 09:16 Dose: 1,000 mcg Epoetin Ifeanyi (Procrit) 10,000 unit SC MWF [facility] Iron Sucrose 100 mg/ Sodium (Chloride) 105 mls @ 105 mls/hr IVPB DAILY [facility] Last Admin: 05/09/17 09:15 Dose: 105 mls/hr Valsartan (Diovan) 80 mg PO DAILY [facility] Last Admin: 05/09/17 11:34 Dose: 80 mg - Labs Labs: 05/08/17 06:00 05/08/17 06:00 PT 15.9 Seconds (9.8-13.1) H 05/07/17 12:43 INR 1.4 (0.9-1.2) H 05/07/17 12:43 APTT 26.4 Seconds (25.6-37.1) 05/07/17 12:43 - Constitutional Appears: No Acute Distress - Head Exam Additional comments: L facial swelling with large facial bruising - Eye Exam Eye Exam: Conjunctival injection, Periorbital swelling (and tenderness L eye) - ENT Exam ENT Exam: Normal Oropharynx - Neck Exam Neck Exam: Normal Inspection - Respiratory Exam Respiratory Exam: NORMAL BREATHING PATTERN - Cardiovascular Exam Cardiovascular Exam: REGULAR RHYTHM - GI/Abdominal Exam GI & Abdominal Exam: Soft, Normal Bowel Sounds - Extremities Exam Extremities Exam: Tenderness (L arm, L wrist, L knee, L hip) Additional comments: L arm with splint with stacy wrap, neuromuscular status distal good. Nails Onycomycosis. - Back Exam Back Exam: NORMAL INSPECTION - Neurological Exam Neurological Exam: Alert Additional comments: Oriented x2, confused, forgetful. - Psychiatric Exam Psychiatric exam: Normal Mood - Skin Skin Exam: Warm Assessment and Plan (1) Elevated BP without diagnosis of hypertension Status: Acute (2) Fall Status: Acute (3) Head injury Status: Acute (4) Hip injury Status: Acute (5) Macrocytic anemia Status: Acute (6) Maxillary fracture Status: Acute (7) Orbital floor fracture Status: Acute (8) Radius fracture Status: Acute (9) Ulnar fracture Status: Acute - Assessment and Plan (Free Text) Plan: Discussed with Orthopedic Surgeon Pt can be Tx with cast, f/u Maxillofacial , Procrit, Venofer , Vit B12 and rest of tx.
--- NOTE | 2017-05-09 18:56 | CP.PCM.CON ---
History of Present Illness - History of Present Illness History of Present Illness: 81 year old female with no past medical history, admitted s/p fall, found to have pancytopenia. Per the patients daughter, she was seen walking and tripped. She fell on her right arm and struck her face on the ground. She denies loss of consciousness or dizzyness. In the ER she was found to have pancytopenia and low B12 level. Her daughter notes she has not been eating well in the last 6 months due to diminished appetite. The patient lives alone and her daughter is planning to relocate her mother with her. Past medical history: None Past surgical history: None Family history: Denies hematologic and oncologic problems Social history: Denies tobacco, alcohol, and illicit drug use. Allergies: NKA Review of systems: All remaining review of systems including HEENT, cardiovascular, respiratory, gastrointestinal, genitourinary, musculoskeletal, dermatologic, neurologic, and psychiatric are negative unless mentioned in the HPI. Past Patient History - Past Medical History & Family History Past Medical History?: No - Past Social History Smoking Status: Never Smoked Alcohol: None Drugs: Denies Home Situation {Lives}: Alone - CARDIAC Hx Cardiac Disorders: No - PULMONARY Hx Respiratory Disorders: No - NEUROLOGICAL Hx Neurological Disorder: No - HEENT Hx HEENT Problems: No - RENAL Hx Chronic Kidney Disease: No - ENDOCRINE/METABOLIC Hx Endocrine Disorders: No - HEMATOLOGICAL/ONCOLOGICAL Hx Blood Disorders: No Hx AIDS: No Hx Human Immunodeficiency Virus (HIV): No - INTEGUMENTARY Hx Dermatological Problems: No - MUSCULOSKELETAL/RHEUMATOLOGICAL Hx Musculoskeletal Disorders: No Hx Falls: Yes - GASTROINTESTINAL Hx Gastrointestinal Disorders: No - GENITOURINARY/GYNECOLOGICAL Hx Genitourinary Disorders: No - PSYCHIATRIC Hx Psychophysiologic Disorder: No Hx Substance Use: No - SURGICAL HISTORY Hx Surgeries: No - ANESTHESIA Hx Anesthesia: Yes Hx Anesthesia Reactions: No Hx Malignant Hyperthermia: No Has any member of the family had a problem w/ anesthesia?: No Meds Allergies/Adverse Reactions: Allergies Allergy/AdvReac Type Severity Reaction Status Date / Time No Known Allergies Allergy Verified 05/07/17 11:17 - Medications Medications: Current Medications Acetaminophen (Tylenol 325mg Tab) 650 mg PO Q6 PRN PRN Reason: Pain, moderate (4-7) Last Admin: 05/07/17 20:35 Dose: 650 mg Acetaminophen (Tylenol 325mg Tab) 325 mg PO Q4 PRN PRN Reason: Pain, Mild (1-3) Last Admin: 05/08/17 20:45 Dose: 325 mg Cyanocobalamin (Vitamin B12 1000 Mcg/Ml Inj) 1,000 mcg IM DAILY [facility] Last Admin: 05/09/17 09:16 Dose: 1,000 mcg Epoetin Ifeanyi (Procrit) 10,000 unit SC MWF [facility] Iron Sucrose 100 mg/ Sodium (Chloride) 105 mls @ 105 mls/hr IVPB DAILY [facility] Last Admin: 05/09/17 09:15 Dose: 105 mls/hr Valsartan (Diovan) 80 mg PO DAILY [facility] Last Admin: 05/09/17 11:34 Dose: 80 mg Physical Exam - Head Exam Head Exam: ATRAUMATIC - Eye Exam Eye Exam: Normal appearance - ENT Exam ENT Exam: Mucous Membranes Dry - Respiratory Exam Respiratory Exam: NORMAL BREATHING PATTERN - Cardiovascular Exam Cardiovascular Exam: +S1, +S2 - GI/Abdominal Exam GI & Abdominal Exam: Normal Bowel Sounds - Extremities Exam Additional comments: left arm dressing - Neurological Exam Neurological exam: Oriented x3 - Psychiatric Exam Psychiatric exam: Normal Affect, Normal Mood - Skin Skin Exam: Warm Results - Vital Signs Recent Vital Signs: Last Vital Signs Temp 98.8 F 05/09/17 16:24 Pulse 74 05/09/17 16:24 Resp 18 05/09/17 16:24 BP 129/76 05/09/17 16:24 Pulse Ox 95 05/09/17 16:24 - Labs Result Diagrams: 05/08/17 06:00 05/08/17 06:00 Assessment & Plan (1) Pancytopenia Assessment and Plan: likely related to severe B12 deficiency agree with IM b12 supplementation daily normal iron and folate stores if counts do not improve in 1-2 weeks with B12 supplementation, will require a bone marrow biopsy for further evaluation Thank you for this interesting consult. Status: Acute
--- NOTE | 2017-05-09 22:46 | CP.PCM.PN ---
Subjective - Date & Time of Evaluation Date of Evaluation: 05/09/17 Time of Evaluation: 17:30 - Subjective Subjective: NO LH, DIZZINESS, PALP, CP, SOB Objective - Vital Signs/Intake and Output Vital Signs (last 24 hours): Temp Pulse Resp BP Pulse Ox 97.6 F 72 16 162/81 H 95 05/09/17 20:01 05/09/17 20:01 05/09/17 20:01 05/09/17 20:01 05/09/17 20:01 Intake and Output: 05/09/17 05/10/17 18:59 06:59 Intake Total 400 Balance 400 - Medications Medications: Current Medications Acetaminophen (Tylenol 325mg Tab) 650 mg PO Q6 PRN PRN Reason: Pain, moderate (4-7) Last Admin: 05/07/17 20:35 Dose: 650 mg Acetaminophen (Tylenol 325mg Tab) 325 mg PO Q4 PRN PRN Reason: Pain, Mild (1-3) Last Admin: 05/08/17 20:45 Dose: 325 mg Cyanocobalamin (Vitamin B12 1000 Mcg/Ml Inj) 1,000 mcg IM DAILY [facility] Last Admin: 05/09/17 09:16 Dose: 1,000 mcg Epoetin Ifeanyi (Procrit) 10,000 unit SC F [facility] Iron Sucrose 100 mg/ Sodium (Chloride) 105 mls @ 105 mls/hr IVPB DAILY [facility] Last Admin: 05/09/17 09:15 Dose: 105 mls/hr Valsartan (Diovan) 80 mg PO DAILY [facility] Last Admin: 05/09/17 11:34 Dose: 80 mg - Labs Labs: 05/08/17 06:00 05/08/17 06:00 PT 15.9 Seconds (9.8-13.1) H 05/07/17 12:43 INR 1.4 (0.9-1.2) H 05/07/17 12:43 APTT 26.4 Seconds (25.6-37.1) 05/07/17 12:43 Assessment and Plan (1) Fall Status: Acute (2) Elevated BP without diagnosis of hypertension Status: Acute (3) Tachycardia Status: Acute (4) RBBB Status: Acute (5) Head injury Status: Acute (6) Maxillary fracture Status: Acute (7) Orbital floor fracture Status: Acute (8) Radius fracture Status: Acute (9) Ulnar fracture Status: Acute (10) Pancytopenia Status: Acute
[2017-05-10 06:10] LABS: BASO % 0.5 % (0.0-2.0); EOS # 0.1 K/uL (0.0-0.7); EOS % 2.7 % (0.0-4.0); HEMOGLOBIN 10.7 g/dL (12.0-16.0); LYMPH # 1.3 K/uL (1.0-4.3); LYMPH % 31.7 % (20.0-40.0); MEAN CELL VOLUME 110.8 fl (81.0-99.0); MEAN CORPUSCULAR HEMOGLOBIN 37.3 pg (27.0-31.0); MEAN CORPUSCULAR HGB CONC 33.6 g/dL (33.0-37.0); MEAN PLATELET VOLUME 9.6 fl (7.2-11.7); MONO # 0.4 K/uL (0.0-0.8); MONO % 10.9 % (0.0-10.0); NEUT # 2.2 K/uL (1.8-7.0); NEUT % 54.2 % (50.0-75.0); NRBC % 0.1 % (0.0-0.0); RBC 2.86 Mil/uL (3.80-5.20); RED CELL DISTRIBUTION WIDTH 23.9 % (11.5-14.5)
[2017-05-10] MEDS: EPOETIN ALFA 10,000 UNIT/ML ML SC SCH (09:07)
--- NOTE | 2017-05-10 11:17 | US ---
PROCEDURE: Carotid vertebral duplex sonography HISTORY: S/P FALL COMPARISON: None available. TECHNIQUE: Grayscale, color Doppler and spectral Doppler assessment of the carotid system bilaterally. This includes common carotid, internal carotid arteries Vertebral artery assessment with respect to direction of flow (antegrade or retrograde) FINDINGS: RIGHT carotid system: Assessment of plaque: Heterogeneous plaque formation. Peak systolic ICA velocity: 82.0 cm/sec End-diastolic velocity: 26.0 cm/sec ICA/CCA ratio: 0.9 Vertebral artery flow: Antegrade LEFT carotid system: Assessment of plaque: Heterogeneous plaque formation. Peak systolic ICA velocity: 85.4 cm/sec End-diastolic velocity: 25.7 cm/sec ICA/CCA ratio: 0.9 Vertebral artery flow: Antegrade IMPRESSION: Right ICA degree of stenosis: Less than 50% Left ICA degree of stenosis: Less than 50% Reference Internal Carotid Artery (ICA) Peak Systolic Velocity (PSV) for above: 1. Less than 50% stenosis less than 125 cm/s peak systolic velocity 2. 50-69% stenosis 125-230cm/s peak systolic velocity 3. Greater than 70% but less than near occlusion greater than 230 cm/s peak systolic velocity
--- NOTE | 2017-05-10 15:03 | CP.PCM.PN ---
Subjective - Date & Time of Evaluation Date of Evaluation: 05/10/17 Time of Evaluation: 11:30 - Subjective Subjective: F/U Multiple Injury s/p fall. Pt with no A/D, c/o of pain in L wrist only, no facial pain. Objective - Vital Signs/Intake and Output Vital Signs (last 24 hours): Temp Pulse Resp BP Pulse Ox 98.5 F 82 20 130/75 97 05/10/17 12:00 05/10/17 12:00 05/10/17 12:00 05/10/17 12:00 05/10/17 12:00 Intake and Output: 05/10/17 05/10/17 06:59 18:59 Intake Total 200 Balance 200 - Medications Medications: Current Medications Acetaminophen (Tylenol 325mg Tab) 650 mg PO Q6 PRN PRN Reason: Pain, moderate (4-7) Last Admin: 05/07/17 20:35 Dose: 650 mg Acetaminophen (Tylenol 325mg Tab) 325 mg PO Q4 PRN PRN Reason: Pain, Mild (1-3) Last Admin: 05/08/17 20:45 Dose: 325 mg Artificial Tears (Artificial Tears) 2 drop OU Q4 PRN PRN Reason: Dry eyes Cyanocobalamin (Vitamin B12 1000 Mcg/Ml Inj) 1,000 mcg IM DAILY [facility] Last Admin: 05/10/17 09:07 Dose: 1,000 mcg Epoetin Ifeanyi (Procrit) 10,000 unit SC MWF [facility] Last Admin: 05/10/17 09:07 Dose: 10,000 unit Iron Sucrose 100 mg/ Sodium (Chloride) 105 mls @ 105 mls/hr IVPB DAILY [facility] Last Admin: 05/10/17 09:08 Dose: 105 mls/hr Valsartan (Diovan) 80 mg PO DAILY [facility] Last Admin: 05/10/17 09:07 Dose: 80 mg - Labs Labs: 05/10/17 05:20 05/08/17 06:00 PT 15.9 Seconds (9.8-13.1) H 05/07/17 12:43 INR 1.4 (0.9-1.2) H 05/07/17 12:43 APTT 26.4 Seconds (25.6-37.1) 05/07/17 12:43 - Constitutional Appears: No Acute Distress - Head Exam Head Exam: NORMAL INSPECTION Additional comments: Facial swelling and bruising - Eye Exam Eye Exam: Conjunctival injection (L eye), Periorbital swelling (Left , Pupil Left dilated , non reactive , opacity) - ENT Exam ENT Exam: Normal Oropharynx - Neck Exam Neck Exam: Normal Inspection - Respiratory Exam Respiratory Exam: NORMAL BREATHING PATTERN - Cardiovascular Exam Cardiovascular Exam: REGULAR RHYTHM - GI/Abdominal Exam GI & Abdominal Exam: Soft, Normal Bowel Sounds - Extremities Exam Extremities Exam: Tenderness (L arm and wrist, L knee and L hip) Additional comments: L arm with splint with stacy wrap, neuromuscular status distal good. Nails Onycomycosis. - Back Exam Back Exam: NORMAL INSPECTION - Neurological Exam Neurological Exam: Alert Additional comments: Oriented x 2, confused, forgetful. - Psychiatric Exam Psychiatric exam: Normal Mood - Skin Skin Exam: Warm Assessment and Plan (1) Fall Status: Acute (2) Head injury Status: Acute (3) Hip injury Status: Acute (4) Maxillary fracture Status: Acute (5) Orbital floor fracture Status: Acute (6) Radius fracture Status: Acute (7) Ulnar fracture Status: Acute (8) Macrocytic anemia Status: Acute (9) Pancytopenia Status: Acute (10) Elevated BP without diagnosis of hypertension Status: Acute - Assessment and Plan (Free Text) Plan: To have Fx reduction on Wednesday, continue Iron, Vit. B12, Procrit f/u [facility] Lab Technician. Hematology consult appreciated , no Maxillofacial surgeon available, Pt to be follow as out Pt.
[2017-05-10 16:10] LABS: HEMOGLOBIN 10.6 g/dL (12.0-16.0); MEAN CELL VOLUME 110.5 fl (81.0-99.0); MEAN CORPUSCULAR HEMOGLOBIN 38.6 pg (27.0-31.0); MEAN CORPUSCULAR HGB CONC 34.9 g/dL (33.0-37.0); RBC 2.74 Mil/uL (3.80-5.20); RED CELL DISTRIBUTION WIDTH 24.1 % (11.5-14.5)
[2017-05-10] MEDS: Artificial Tears Opht Soln OU PRN ×2 (16:59→21:01)
--- NOTE | 2017-05-10 21:09 | CON ---
DATE OF CONSULTATION: 05/09/2017 REASON FOR CONSULTATION: Left distal radius fracture. HISTORY OF PRESENT ILLNESS: This is a 81-year-old female who had a mechanical fall last landing onto her left wrist. The patient presented to the emergency room and was admitted to the hospital for workup and low hemoglobin. I was consulted for evaluation of her distal radius. Denies numbness or paresthesia. PHYSICAL EXAMINATION: Wrist, skin is intact. There is mild swelling of the wrist, tender to palpation over the distal radius. The patient can make a full fist. Neurologically intact. No tenderness over the elbow or shoulder area. LABORATORY DATA: X-rays of left wrist personally reviewed and show a comminuted intraarticular distal radius fracture with loss of volar tilt and radial inclination. ASSESSMENT: Left distal radius fracture. PLAN: We discussed above findings with the patient and the daughter. We discussed both surgical and nonsurgical treatment options, risks and benefits of each. The patient elected to undergo closed reduction. I will schedule her for closed reduction pending medical clearance. Gianni Zuñiga MD
--- NOTE | 2017-05-11 09:44 | CP.PCM.CON ---
History of Present Illness - History of Present Illness History of Present Illness: 81 year old female seen at bedside at the request for podiatry consultation. Patient is accompanied by her daughter at bedside. Per patient's daughter, patient is complaining of thickened and elongated nails but is unable to trim them herself due to her injury as patient fell and injured her LUE on . Patient denies N/V/F/D/C/SOB/calf pain. No other pedal complaints at this time. Review of Systems - Review of Systems All systems: reviewed and no additional remarkable complaints except (as per HPI ) Past Patient History - Past Medical History & Family History Past Medical History?: No - Past Social History Smoking Status: Never Smoked Alcohol: None Drugs: Denies Home Situation {Lives}: Alone - CARDIAC Hx Cardiac Disorders: No - PULMONARY Hx Respiratory Disorders: No - NEUROLOGICAL Hx Neurological Disorder: No - HEENT Hx HEENT Problems: No - RENAL Hx Chronic Kidney Disease: No - ENDOCRINE/METABOLIC Hx Endocrine Disorders: No - HEMATOLOGICAL/ONCOLOGICAL Hx Blood Disorders: No Hx AIDS: No Hx Human Immunodeficiency Virus (HIV): No - INTEGUMENTARY Hx Dermatological Problems: No - MUSCULOSKELETAL/RHEUMATOLOGICAL Hx Musculoskeletal Disorders: No Hx Falls: Yes - GASTROINTESTINAL Hx Gastrointestinal Disorders: No - GENITOURINARY/GYNECOLOGICAL Hx Genitourinary Disorders: No - PSYCHIATRIC Hx Psychophysiologic Disorder: No Hx Substance Use: No - SURGICAL HISTORY Hx Surgeries: No - ANESTHESIA Hx Anesthesia: Yes Hx Anesthesia Reactions: No Hx Malignant Hyperthermia: No Has any member of the family had a problem w/ anesthesia?: No Meds Allergies/Adverse Reactions: Allergies Allergy/AdvReac Type Severity Reaction Status Date / Time No Known Allergies Allergy Verified 05/07/17 11:17 - Medications Medications: Current Medications Acetaminophen (Tylenol 325mg Tab) 650 mg PO Q6 PRN PRN Reason: Pain, moderate (4-7) Last Admin: 05/07/17 20:35 Dose: 650 mg Acetaminophen (Tylenol 325mg Tab) 325 mg PO Q4 PRN PRN Reason: Pain, Mild (1-3) Last Admin: 05/10/17 20:59 Dose: 325 mg Artificial Tears (Artificial Tears) 2 drop OU Q4 PRN PRN Reason: Dry eyes Last Admin: 05/10/17 21:01 Dose: 2 drop Cyanocobalamin (Vitamin B12 1000 Mcg/Ml Inj) 1,000 mcg IM DAILY [facility] Last Admin: 05/11/17 09:10 Dose: 1,000 mcg Epoetin Ifeanyi (Procrit) 10,000 unit SC MWF [facility] Last Admin: 05/10/17 09:07 Dose: 10,000 unit Iron Sucrose 100 mg/ Sodium (Chloride) 105 mls @ 105 mls/hr IVPB DAILY [facility] Last Admin: 05/11/17 09:09 Dose: 105 mls/hr Valsartan (Diovan) 80 mg PO DAILY [facility] Last Admin: 05/11/17 09:10 Dose: 80 mg Physical Exam - Constitutional Appears: Well, Non-toxic, No Acute Distress - Extremities Exam Additional comments: Vasc: DP and PT pulses palpable 2/4 b/l. CFT <3 seconds to all digits. TG warm to warm. Mild nonpitting edema noted to BLE Neuro: Gross sensation intact Derm: Nails 1-5 b/l are thickened, elongated, and dystrophic with the presence of subungual debris Ortho: No POP noted to foot b/l - Neurological Exam Neurological exam: Alert, Oriented x3 - Psychiatric Exam Psychiatric exam: Normal Affect, Normal Mood Results - Vital Signs Recent Vital Signs: Last Vital Signs Temp 98.2 F 05/11/17 08:00 Pulse 69 05/11/17 08:00 Resp 18 05/11/17 08:00 BP 153/79 H 05/11/17 08:00 Pulse Ox 96 05/11/17 08:00 - Labs Result Diagrams: 05/10/17 16:06 05/08/17 06:00 Labs: Laboratory Results - last 24 hr 05/10/17 16:06 WBC 5.0 RBC 2.74 L Hgb 10.6 L Hct 30.2 L MCV 110.5 H MCH 38.6 H MCHC 34.9 RDW 24.1 H Plt Count 99 L Assessment & Plan - Assessment and Plan (Free Text) Assessment: 81 year old F with onychomycosis Plan: Patient seen and evaluated at bedside Discussed with attending, Dr. Rivera Chart, labs, vitals reviewed - afebrile Nails 1-5 b/l debrided in thickness and length without incident Stable from podiatry standpoint Thank you for this consult, please re-consult again as needed
--- NOTE | 2017-05-11 19:17 | CP.PCM.PN ---
Subjective - Date & Time of Evaluation Date of Evaluation: 05/11/17 Time of Evaluation: 10:20 - Subjective Subjective: F/U Multiple injury 2nd to S/P Fall Pt no c/o of pain at rest in the L arm and wrist. Objective - Vital Signs/Intake and Output Vital Signs (last 24 hours): Temp Pulse Resp BP Pulse Ox 97.9 F 70 20 113/67 98 05/11/17 15:41 05/11/17 15:41 05/11/17 15:41 05/11/17 15:41 05/11/17 15:41 - Medications Medications: Current Medications Acetaminophen (Tylenol 325mg Tab) 650 mg PO Q6 PRN PRN Reason: Pain, moderate (4-7) Last Admin: 05/07/17 20:35 Dose: 650 mg Acetaminophen (Tylenol 325mg Tab) 325 mg PO Q4 PRN PRN Reason: Pain, Mild (1-3) Last Admin: 05/10/17 20:59 Dose: 325 mg Artificial Tears (Artificial Tears) 2 drop OU Q4 PRN PRN Reason: Dry eyes Last Admin: 05/10/17 21:01 Dose: 2 drop Cyanocobalamin (Vitamin B12 1000 Mcg/Ml Inj) 1,000 mcg IM DAILY [facility] Last Admin: 05/11/17 09:10 Dose: 1,000 mcg Epoetin Ifeanyi (Procrit) 10,000 unit SC MWF [facility] Last Admin: 05/10/17 09:07 Dose: 10,000 unit Iron Sucrose 100 mg/ Sodium (Chloride) 105 mls @ 105 mls/hr IVPB DAILY [facility] Last Admin: 05/11/17 09:09 Dose: 105 mls/hr Valsartan (Diovan) 80 mg PO DAILY [facility] Last Admin: 05/11/17 09:10 Dose: 80 mg - Labs Labs: 05/10/17 16:06 05/08/17 06:00 PT 15.9 Seconds (9.8-13.1) H 05/07/17 12:43 INR 1.4 (0.9-1.2) H 05/07/17 12:43 APTT 26.4 Seconds (25.6-37.1) 05/07/17 12:43 - Constitutional Appears: No Acute Distress - Head Exam Additional comments: L facial swelling with large bruising - Eye Exam Eye Exam: Periorbital swelling, Periorbital tenderness - ENT Exam ENT Exam: Normal Oropharynx - Neck Exam Neck Exam: Normal Inspection - Respiratory Exam Respiratory Exam: NORMAL BREATHING PATTERN - Cardiovascular Exam Cardiovascular Exam: REGULAR RHYTHM - GI/Abdominal Exam GI & Abdominal Exam: Soft, Normal Bowel Sounds - Extremities Exam Extremities Exam: Tenderness (L arm, L wrist, L knee, L hip.) Additional comments: Nails Onycomycosis. - Back Exam Back Exam: NORMAL INSPECTION - Neurological Exam Neurological Exam: Awake Additional comments: Oriented x2, confused, forgetful. - Psychiatric Exam Psychiatric exam: Normal Mood - Skin Skin Exam: Warm Assessment and Plan (1) Fall Status: Acute (2) Head injury Status: Acute (3) Hip injury Status: Acute (4) Maxillary fracture Status: Acute (5) Orbital floor fracture Status: Acute (6) Radius fracture Status: Acute (7) Ulnar fracture Status: Acute (8) Macrocytic anemia Status: Acute (9) Elevated BP without diagnosis of hypertension Status: Acute - Assessment and Plan (Free Text) Plan: To have closed reduction L wrist Fx, tomorrow, continue rest of Tx.
[2017-05-11] MEDS: Artificial Tears Opht Soln OU PRN (20:08)
--- NOTE | 2017-05-11 20:39 | CP.PCM.PN ---
Subjective - Date & Time of Evaluation Date of Evaluation: 05/11/17 Time of Evaluation: 19:15 - Subjective Subjective: No complaints Daughter reports she is feeling better Objective - Vital Signs/Intake and Output Vital Signs (last 24 hours): Temp Pulse Resp BP Pulse Ox 97.7 F 73 20 132/78 98 05/11/17 19:26 05/11/17 19:26 05/11/17 19:26 05/11/17 19:26 05/11/17 19:26 Intake and Output: 05/11/17 05/12/17 18:59 06:59 Intake Total 400 Balance 400 - Medications Medications: Current Medications Acetaminophen (Tylenol 325mg Tab) 650 mg PO Q6 PRN PRN Reason: Pain, moderate (4-7) Last Admin: 05/07/17 20:35 Dose: 650 mg Acetaminophen (Tylenol 325mg Tab) 325 mg PO Q4 PRN PRN Reason: Pain, Mild (1-3) Last Admin: 05/10/17 20:59 Dose: 325 mg Artificial Tears (Artificial Tears) 2 drop OU Q4 PRN PRN Reason: Dry eyes Last Admin: 05/11/17 20:08 Dose: 2 drop Cyanocobalamin (Vitamin B12 1000 Mcg/Ml Inj) 1,000 mcg IM DAILY [facility] Last Admin: 05/11/17 09:10 Dose: 1,000 mcg Epoetin Ifeanyi (Procrit) 10,000 unit SC MWF [facility] Last Admin: 05/10/17 09:07 Dose: 10,000 unit Iron Sucrose 100 mg/ Sodium (Chloride) 105 mls @ 105 mls/hr IVPB DAILY [facility] Last Admin: 05/11/17 09:09 Dose: 105 mls/hr Valsartan (Diovan) 80 mg PO DAILY [facility] Last Admin: 05/11/17 09:10 Dose: 80 mg - Labs Labs: 05/10/17 16:06 05/08/17 06:00 PT 15.9 Seconds (9.8-13.1) H 05/07/17 12:43 INR 1.4 (0.9-1.2) H 05/07/17 12:43 APTT 26.4 Seconds (25.6-37.1) 05/07/17 12:43 - Head Exam Additional comments: Right facial ecchymosis - ENT Exam ENT Exam: Mucous Membranes Dry - Respiratory Exam Respiratory Exam: NORMAL BREATHING PATTERN - Cardiovascular Exam Cardiovascular Exam: +S1, +S2 - GI/Abdominal Exam GI & Abdominal Exam: Normal Bowel Sounds - Extremities Exam Additional comments: left UE splint Assessment and Plan (1) Pancytopenia Assessment & Plan: likely secondary to severe b12 deficiency improving with B12 supplementation Status: Acute
--- NOTE | 2017-05-11 20:40 | CP.PCM.PN ---
Subjective - Date & Time of Evaluation Date of Evaluation: 05/10/17 Time of Evaluation: 21:00 - Subjective Subjective: No complaints. Objective - Vital Signs/Intake and Output Vital Signs (last 24 hours): Temp Pulse Resp BP Pulse Ox 97.7 F 73 20 132/78 98 05/11/17 19:26 05/11/17 19:26 05/11/17 19:26 05/11/17 19:26 05/11/17 19:26 Intake and Output: 05/11/17 05/12/17 18:59 06:59 Intake Total 400 Balance 400 - Medications Medications: Current Medications Acetaminophen (Tylenol 325mg Tab) 650 mg PO Q6 PRN PRN Reason: Pain, moderate (4-7) Last Admin: 05/07/17 20:35 Dose: 650 mg Acetaminophen (Tylenol 325mg Tab) 325 mg PO Q4 PRN PRN Reason: Pain, Mild (1-3) Last Admin: 05/10/17 20:59 Dose: 325 mg Artificial Tears (Artificial Tears) 2 drop OU Q4 PRN PRN Reason: Dry eyes Last Admin: 05/11/17 20:08 Dose: 2 drop Cyanocobalamin (Vitamin B12 1000 Mcg/Ml Inj) 1,000 mcg IM DAILY [facility] Last Admin: 05/11/17 09:10 Dose: 1,000 mcg Epoetin Ifeanyi (Procrit) 10,000 unit SC MWF [facility] Last Admin: 05/10/17 09:07 Dose: 10,000 unit Iron Sucrose 100 mg/ Sodium (Chloride) 105 mls @ 105 mls/hr IVPB DAILY [facility] Last Admin: 05/11/17 09:09 Dose: 105 mls/hr Valsartan (Diovan) 80 mg PO DAILY [facility] Last Admin: 05/11/17 09:10 Dose: 80 mg - Labs Labs: 05/10/17 16:06 05/08/17 06:00 PT 15.9 Seconds (9.8-13.1) H 05/07/17 12:43 INR 1.4 (0.9-1.2) H 05/07/17 12:43 APTT 26.4 Seconds (25.6-37.1) 05/07/17 12:43 - Head Exam Additional comments: left facial ecchymosis - Eye Exam Eye Exam: Normal appearance - ENT Exam ENT Exam: Mucous Membranes Dry - Respiratory Exam Respiratory Exam: NORMAL BREATHING PATTERN - Cardiovascular Exam Cardiovascular Exam: +S1, +S2 - GI/Abdominal Exam GI & Abdominal Exam: Normal Bowel Sounds - Extremities Exam Additional comments: LUE splint Assessment and Plan (1) Pancytopenia Assessment & Plan: improving with B12 supplementation Status: Acute
[2017-05-12 06:37] LABS: HEMOGLOBIN 10.3 g/dL (12.0-16.0); MEAN CORPUSCULAR HEMOGLOBIN 37.4 pg (27.0-31.0); MEAN CORPUSCULAR HGB CONC 33.1 g/dL (33.0-37.0); RBC 2.74 Mil/uL (3.80-5.20); RED CELL DISTRIBUTION WIDTH 24.5 % (11.5-14.5); WHITE BLOOD COUNT 4.2 K/uL (4.8-10.8)
[2017-05-12] MEDS ORDERED: Dextrose 5%/0.45% NS 1,000 ML IV SCH (06:45)
[2017-05-12 06:48] LABS: BLOOD UREA NITROGEN 30 mg/dl (7-17); CALCIUM 8.7 mg/dL (8.4-10.2); GFR AFRICAN-AMERICAN > 60; GFR NON-AFRICAN AMERICAN > 60
[2017-05-12 06:54] LABS: INR 1.5 (0.9-1.2); PARTIAL THROMBOPLASTIN TIME 28.9 Seconds (25.6-37.1); PROTHROMBIN TIME 15.3 Seconds (9.8-13.1)
[2017-05-12] MEDS ORDERED: Potassium Ch 20mEq in D5-1/2NS 1,000 ML IV SCH (08:58)
[2017-05-12] MEDS: EPOETIN ALFA 10,000 UNIT/ML ML SC SCH (09:06)
[2017-05-12] MEDS: Artificial Tears Opht Soln OU PRN (09:07)
--- NOTE | 2017-05-12 09:26 | CP.PCM.PCO ---
Assessment & Plan - Assessment and Plan (Free Text) Assessment: patient cleared for Closed reduction L distal radius fx/ sx today by
[2017-05-12] MEDS: Potassium CL 10 MEQ/50 ML 50 ML IVPB SCH ×2 (09:45→11:03)
--- NOTE | 2017-05-12 09:55 | CP.PCM.PN ---
Subjective - Date & Time of Evaluation Date of Evaluation: 05/12/17 Time of Evaluation: 09:51 - Subjective Subjective: PT DENIES CP, SOB, LH, SYNCOPE, NEAR SYNCOPE. ECHO SHOWS EF OF 63%. TELE REVEALS NO ARRYTHMIAS. PT SCHEDULED FOR ORIF OF LEFT ARM. SHE GIVES NO HX OF CAD. HAS MILD NON OBSTRUCTIVE PLAQUE ON CAROTID STUDY. Objective - Vital Signs/Intake and Output Vital Signs (last 24 hours): Temp Pulse Resp BP Pulse Ox 98.5 F 63 18 146/75 98 05/12/17 08:00 05/12/17 08:00 05/12/17 08:00 05/12/17 08:00 05/12/17 08:00 - Medications Medications: Current Medications Acetaminophen (Tylenol 325mg Tab) 650 mg PO Q6 PRN PRN Reason: Pain, moderate (4-7) Last Admin: 05/07/17 20:35 Dose: 650 mg Acetaminophen (Tylenol 325mg Tab) 325 mg PO Q4 PRN PRN Reason: Pain, Mild (1-3) Last Admin: 05/10/17 20:59 Dose: 325 mg Artificial Tears (Artificial Tears) 2 drop OU Q4 PRN PRN Reason: Dry eyes Last Admin: 05/12/17 09:07 Dose: 2 drop Cyanocobalamin (Vitamin B12 1000 Mcg/Ml Inj) 1,000 mcg IM DAILY [facility] Last Admin: 05/12/17 09:07 Dose: 1,000 mcg Epoetin Ifeanyi (Procrit) 10,000 unit SC MWF [facility] Last Admin: 05/12/17 09:06 Dose: 10,000 unit Iron Sucrose 100 mg/ Sodium (Chloride) 105 mls @ 105 mls/hr IVPB DAILY [facility] Last Admin: 05/11/17 09:09 Dose: 105 mls/hr Potassium Chloride/Dextrose/Sod Cl (Potassium Chl 20 Meq In D5-1/2ns) 1,000 mls @ 70 mls/hr IV .[id number] [facility] Stop: 05/12/17 23:15 Potassium Chloride (Potassium Cl 10meq/50ml Sterile Water) 50 mls @ 50 mls/hr IVPB Q1 [facility] Stop: 05/12/17 11:59 Last Admin: 05/12/17 09:45 Dose: 50 mls/hr Valsartan (Diovan) 80 mg PO DAILY [facility] Last Admin: 05/12/17 09:07 Dose: 80 mg - Labs Labs: 05/12/17 05:30 05/12/17 05:30 PT 15.3 Seconds (9.8-13.1) H 05/12/17 05:30 INR 1.5 (0.9-1.2) H 05/12/17 05:30 APTT 28.9 Seconds (25.6-37.1) 05/12/17 05:30 - Constitutional Appears: Non-toxic - Head Exam Additional comments: IMPROVING FACIAL ECCHYMOSIS - Eye Exam Eye Exam: EOMI, Normal appearance, PERRL. absent: Conjunctival injection, Nystagmus, Periorbital swelling, Periorbital tenderness, Scleral icterus Pupil Exam: NORMAL ACCOMODATION, PERRL - ENT Exam ENT Exam: Mucous Membranes Moist, Normal Exam. absent: Mucous Membranes Dry, Normal External Ear Exam, Normal Oropharynx, TM's Normal Bilaterally - Neck Exam Neck Exam: Full ROM, Normal Inspection. absent: Lymphadenopathy, Meningismus, Tenderness, Thyromegaly - Respiratory Exam Respiratory Exam: Clear to Ausculation Bilateral, NORMAL BREATHING PATTERN. absent: Accessory Muscle Use, Chest Wall Tenderness, Decreased Breath Sounds, Prolonged Expiratory Phase, Rales, Rhonchi, Wheezes, Respiratory Distress, Stridor - Cardiovascular Exam Cardiovascular Exam: REGULAR RHYTHM, +S1, +S2, Murmur. absent: Bradycardia, Tachycardia, Clicks, Diastolic murmur, Gallop, Irregular Rhythm, JVD, RRR, Rubs , +S4 - GI/Abdominal Exam GI & Abdominal Exam: Soft, Normal Bowel Sounds - Rectal Exam Rectal Exam: Deferred - Extremities Exam Extremities Exam: Full ROM, Normal Capillary Refill. absent: Joint Swelling, Pedal Edema Additional comments: RUE CDI - Back Exam Back Exam: NORMAL INSPECTION - Neurological Exam Neurological Exam: Alert, Awake, CN II-XII Intact, Oriented x3. absent: Abnormal Gait, Altered, Motor Sensory Deficit, Normal Gait, Reflexes Normal - Psychiatric Exam Psychiatric exam: Normal Affect, Normal Mood. absent: Agitated, Anxious, Depressed, Flat Affect, Homicidal Ideation, Manic, Suicidal Ideation - Skin Skin Exam: Dry, Intact, Normal Color, Warm. absent: Abrasion, Cyanosis, Diaphoretic, Erythema, Mottled, Pallor, Pallor, Petechiae, Rash, Urticaria, Vesicles Assessment and Plan (1) Fall Status: Acute (2) Elevated BP without diagnosis of hypertension Status: Acute (3) Tachycardia Status: Acute (4) RBBB Status: Acute (5) Head injury Status: Acute (6) Maxillary fracture Status: Acute (7) Orbital floor fracture Status: Acute (8) Radius fracture Status: Acute (9) Ulnar fracture Status: Acute (10) Pancytopenia Status: Acute (11) Carotid artery plaque Status: Acute - Assessment and Plan (Free Text) Plan: FROM A CARDIAC PERSPECTIVE PT MAY PROCEED TO OR FOR ORIF. SHE IS ASYMPTOMATIC, NML EF AND NO ARRYTHMIAS. HER BP AND HR ARE CONTROLLED. GIVEN HER CAROTID PLAQUE I RECOMMEND PLAVIX POST OP ONCE OKAY WITH SURGICAL TEAM. THIS IS CHRONIC DZ, SUCH PLAVIX DOES NOT TO BE INITIATED IMMEDIATELY POST OP. WOULD START ONCE SURGERY FEELS THE RISK OF BLEED IN TRAUMA REGIONS IS NEGLIGIBLE. 65 MIN TOTAL CARE TIME
[2017-05-12] MEDS ORDERED: Midazolam 2 MG/2 ML VIAL ONE (12:06)
[2017-05-12] MEDS ORDERED: Propofol 10 mg/ml Inj (20 ML) ONE (12:11)
[2017-05-12] MEDS ORDERED: Lidocaine 1% Inj (20ml) ONE (12:16)
--- NOTE | 2017-05-12 12:19 | CP.PCM.PN ---
Subjective - Date & Time of Evaluation Date of Evaluation: 05/12/17 Time of Evaluation: 12:00 - Subjective Subjective: No complaints Objective - Vital Signs/Intake and Output Vital Signs (last 24 hours): Temp Pulse Resp BP Pulse Ox 98.5 F 66 18 146/75 98 05/12/17 08:00 05/12/17 09:00 05/12/17 08:00 05/12/17 08:00 05/12/17 08:00 - Medications Medications: Current Medications Acetaminophen (Tylenol 325mg Tab) 650 mg PO Q6 PRN PRN Reason: Pain, moderate (4-7) Last Admin: 05/07/17 20:35 Dose: 650 mg Acetaminophen (Tylenol 325mg Tab) 325 mg PO Q4 PRN PRN Reason: Pain, Mild (1-3) Last Admin: 05/10/17 20:59 Dose: 325 mg Artificial Tears (Artificial Tears) 2 drop OU Q4 PRN PRN Reason: Dry eyes Last Admin: 05/12/17 09:07 Dose: 2 drop Cyanocobalamin (Vitamin B12 1000 Mcg/Ml Inj) 1,000 mcg IM DAILY [facility] Last Admin: 05/12/17 09:07 Dose: 1,000 mcg Epoetin Ifeanyi (Procrit) 10,000 unit SC MWF [facility] Last Admin: 05/12/17 09:06 Dose: 10,000 unit Iron Sucrose 100 mg/ Sodium (Chloride) 105 mls @ 105 mls/hr IVPB DAILY [facility] Last Admin: 05/11/17 09:09 Dose: 105 mls/hr Potassium Chloride/Dextrose/Sod Cl (Potassium Chl 20 Meq In D5-1/2ns) 1,000 mls @ 70 mls/hr IV .[id number] [facility] Stop: 05/12/17 23:15 Valsartan (Diovan) 80 mg PO DAILY [facility] Last Admin: 05/12/17 09:07 Dose: 80 mg - Labs Labs: 05/12/17 05:30 05/12/17 05:30 PT 15.3 Seconds (9.8-13.1) H 05/12/17 05:30 INR 1.5 (0.9-1.2) H 05/12/17 05:30 APTT 28.9 Seconds (25.6-37.1) 05/12/17 05:30 - Head Exam Additional comments: Facial ecchymosis - ENT Exam ENT Exam: Mucous Membranes Dry - Respiratory Exam Respiratory Exam: NORMAL BREATHING PATTERN - Cardiovascular Exam Cardiovascular Exam: +S1, +S2 - GI/Abdominal Exam GI & Abdominal Exam: Normal Bowel Sounds - Extremities Exam Additional comments: left arm sling Assessment and Plan (1) Pancytopenia Assessment & Plan: secondary to sever B12 deficiency counts improving on IM B12 pt cleared for orthopedic procedure Status: Acute
[2017-05-12] MEDS ORDERED: Lactated Ringer's 1,000 ML IV ONE (12:30)
[2017-05-12] MEDS ORDERED: Lidocaine 1% Inj (20ml) IJ ONE ×2 (12:43)
[2017-05-12] MEDS ORDERED: HYDROmorphone 0.5 mg/0.5 ml ISec IVP PRN (13:05)
[2017-05-12] MEDS: Lactated Ringer's 1,000 ML IV SCH ×2 (13:50→23:45)
--- NOTE | 2017-05-12 13:53 | RAD ---
PROCEDURE: Left Wrist Radiographs. HISTORY: post reduction COMPARISON: Pre reduction radiographs 05/07/2017 FINDINGS: BONES: Anatomic alignment of major fracture fragments. JOINTS: Nondiagnostic assessment SOFT TISSUES: Nondiagnostic assessment OTHER FINDINGS: None. IMPRESSION: Major fracture fragments are anatomically aligned. Limitations of the current study: Detail obscured by overlying fiberglass cast.
--- NOTE | 2017-05-12 14:27 | CP.PCM.PN ---
Subjective - Date & Time of Evaluation Date of Evaluation: 05/12/17 Time of Evaluation: 10:00 - Subjective Subjective: F/U Multiple Injury s/p Fall. Objective - Vital Signs/Intake and Output Vital Signs (last 24 hours): Temp Pulse Resp BP Pulse Ox 98.6 F 64 20 136/60 98 05/12/17 13:59 05/12/17 13:59 05/12/17 13:59 05/12/17 13:59 05/12/17 13:59 Intake and Output: 05/12/17 05/12/17 06:59 18:59 Intake Total 150 Balance 150 - Medications Medications: Current Medications Acetaminophen (Tylenol 325mg Tab) 650 mg PO Q6 PRN PRN Reason: Pain, moderate (4-7) Last Admin: 05/07/17 20:35 Dose: 650 mg Acetaminophen (Tylenol 325mg Tab) 325 mg PO Q4 PRN PRN Reason: Pain, Mild (1-3) Last Admin: 05/10/17 20:59 Dose: 325 mg Artificial Tears (Artificial Tears) 2 drop OU Q4 PRN PRN Reason: Dry eyes Last Admin: 05/12/17 09:07 Dose: 2 drop Cyanocobalamin (Vitamin B12 1000 Mcg/Ml Inj) 1,000 mcg IM DAILY [facility] Last Admin: 05/12/17 09:07 Dose: 1,000 mcg Epoetin Ifeanyi (Procrit) 10,000 unit SC MWF [facility] Last Admin: 05/12/17 09:06 Dose: 10,000 unit Hydromorphone HCl (Dilaudid) 0.5 mg IVP Q10M PRN PRN Reason: Pain, moderate (4-7) Iron Sucrose 100 mg/ Sodium (Chloride) 105 mls @ 105 mls/hr IVPB DAILY [facility] Last Admin: 05/11/17 09:09 Dose: 105 mls/hr Potassium Chloride/Dextrose/Sod Cl (Potassium Chl 20 Meq In D5-1/2ns) 1,000 mls @ 70 mls/hr IV .[id number] [facility] Stop: 05/12/17 23:15 Lactated Ringer's (Lactated Ringer's) 1,000 mls @ 125 mls/hr IV .Q8H [facility] Valsartan (Diovan) 80 mg PO DAILY [facility] Last Admin: 05/12/17 09:07 Dose: 80 mg - Labs Labs: 05/12/17 05:30 05/12/17 05:30 PT 15.3 Seconds (9.8-13.1) H 05/12/17 05:30 INR 1.5 (0.9-1.2) H 05/12/17 05:30 APTT 28.9 Seconds (25.6-37.1) 05/12/17 05:30 - Constitutional Appears: No Acute Distress - Head Exam Additional comments: L facial swelling with large facial bruising - Eye Exam Eye Exam: Periorbital swelling (and tenderness L eye) - ENT Exam ENT Exam: Normal Oropharynx - Neck Exam Neck Exam: Normal Inspection - Respiratory Exam Respiratory Exam: NORMAL BREATHING PATTERN - Cardiovascular Exam Cardiovascular Exam: REGULAR RHYTHM - GI/Abdominal Exam GI & Abdominal Exam: Soft, Normal Bowel Sounds - Extremities Exam Extremities Exam: Tenderness (L arm, L wrist, L knee, L hip.) Additional comments: L arm with splint with stacy wrap, neuromuscular status distal good. Nails with Onycomycosis. - Back Exam Back Exam: NORMAL INSPECTION - Neurological Exam Neurological Exam: Awake Additional comments: Oriented x2, confused, forgetful. - Psychiatric Exam Psychiatric exam: Normal Mood - Skin Skin Exam: Warm Assessment and Plan (1) Fall Status: Acute (2) Head injury Status: Acute (3) Hip injury Status: Acute (4) Maxillary fracture Status: Acute (5) Orbital floor fracture Status: Acute (6) Radius fracture Status: Acute (7) Ulnar fracture Status: Acute (8) Macrocytic anemia Status: Acute (9) Elevated BP without diagnosis of hypertension Status: Acute
--- NOTE | 2017-05-12 22:05 | OP ---
DATE OF SURGERY: 05/12/2017 SURGEON: Dr. Gianni Zuñiga. PREOPERATIVE DIAGNOSIS: Displaced left comminuted distal radius fracture. POSTOPERATIVE DIAGNOSIS: Displaced left comminuted distal radius fracture. PROCEDURE: Closed reduction with manipulation of left distal radius fracture, [address]. BLOOD LOSS: None. ANESTHESIA: Local and sedation. COMPLICATIONS: None. DISPOSITION: Stable to recovery room. DESCRIPTION OF PROCEDURE: The patient was brought to the operating room and placed supine on the bed. After regional anesthesia was given using a total block, the left upper extremity was prepped. The extremity was hung in traction with 15-pound traction weights. The fluoroscopy again confirmed displaced distal radius fracture. Under direct manipulation, the wrist was reduced with longitudinal traction and forward flexion regaining the volar tilt of the fracture piece. The fracture was held in place and a long-arm Sugar-Tong plaster splint was placed. The patient tolerated the procedure well. Traction was removed and she had good capillary refills and sensations in digits. The patient will follow in the office in 2 to 3 weeks for further evaluation and new x-rays. Gianni Zuñiga MD
[2017-05-12] MEDS ORDERED: Potassium Chloride 20 mEq ER Tab PO ONE (23:21)
[2017-05-13] MEDS: Lactated Ringer's 1,000 ML IV SCH ×3 (05:00→21:45)
[2017-05-13 07:01] LABS: HEMOGLOBIN 9.7 g/dL (12.0-16.0); MEAN CELL VOLUME 113.5 fl (81.0-99.0); MEAN CORPUSCULAR HEMOGLOBIN 37.6 pg (27.0-31.0); MEAN CORPUSCULAR HGB CONC 33.1 g/dL (33.0-37.0); RBC 2.59 Mil/uL (3.80-5.20); RED CELL DISTRIBUTION WIDTH 23.7 % (11.5-14.5); WHITE BLOOD COUNT 3.7 K/uL (4.8-10.8)
[2017-05-13 07:09] LABS: BLOOD UREA NITROGEN 18 mg/dl (7-17); CALCIUM 8.6 mg/dL (8.4-10.2); GFR AFRICAN-AMERICAN > 60; GFR NON-AFRICAN AMERICAN > 60
--- NOTE | 2017-05-13 12:50 | CP.PCM.PN ---
Subjective - Subjective Subjective: Patient had yesterday 8-2 close reduction Fx L wrist with a cast , no pain L wrist area Objective - Vital Signs/Intake and Output Vital Signs (last 24 hours): Temp Pulse Resp BP Pulse Ox 98.7 F 71 18 137/74 98 05/13/17 12:06 05/13/17 12:06 05/13/17 12:06 05/13/17 12:06 05/13/17 12:06 - Medications Medications: Current Medications Acetaminophen (Tylenol 325mg Tab) 650 mg PO Q6 PRN PRN Reason: Pain, moderate (4-7) Last Admin: 05/07/17 20:35 Dose: 650 mg Acetaminophen (Tylenol 325mg Tab) 325 mg PO Q4 PRN PRN Reason: Pain, Mild (1-3) Last Admin: 05/12/17 22:07 Dose: 325 mg Artificial Tears (Artificial Tears) 2 drop OU Q4 PRN PRN Reason: Dry eyes Last Admin: 05/12/17 09:07 Dose: 2 drop Cyanocobalamin (Vitamin B12 1000 Mcg/Ml Inj) 1,000 mcg IM DAILY [facility] Last Admin: 05/13/17 08:31 Dose: 1,000 mcg Epoetin Ifeanyi (Procrit) 10,000 unit SC MWF [facility] Last Admin: 05/12/17 09:06 Dose: 10,000 unit Hydromorphone HCl (Dilaudid) 0.5 mg IVP Q10M PRN PRN Reason: Pain, moderate (4-7) Iron Sucrose 100 mg/ Sodium (Chloride) 105 mls @ 105 mls/hr IVPB DAILY [facility] Last Admin: 05/13/17 12:02 Dose: 105 mls/hr Lactated Ringer's (Lactated Ringer's) 1,000 mls @ 125 mls/hr IV .Q8H [facility] Last Admin: 05/13/17 12:05 Dose: 125 mls/hr Valsartan (Diovan) 80 mg PO DAILY [facility] Last Admin: 05/13/17 08:31 Dose: 80 mg - Labs Labs: 05/13/17 05:30 05/13/17 05:30 PT 15.3 Seconds (9.8-13.1) H 05/12/17 05:30 INR 1.5 (0.9-1.2) H 05/12/17 05:30 APTT 28.9 Seconds (25.6-37.1) 05/12/17 05:30 - Constitutional Appears: No Acute Distress - Head Exam Additional comments: L face ecchymosis - Eye Exam Eye Exam: PERRL (R Pupil, L Pupil dilated , non reactive , opacity) - ENT Exam ENT Exam: Normal Oropharynx - Respiratory Exam Respiratory Exam: Clear to Ausculation Bilateral - Cardiovascular Exam Cardiovascular Exam: REGULAR RHYTHM - GI/Abdominal Exam GI & Abdominal Exam: Soft, Normal Bowel Sounds - Extremities Exam Additional comments: cast l elbow , L forearm, L hand, moves well all fingers - Back Exam Back Exam: NORMAL INSPECTION - Neurological Exam Neurological Exam: Alert Additional comments: no focal motor/sensory defiicit - Psychiatric Exam Psychiatric exam: Normal Affect - Skin Skin Exam: Warm Assessment and Plan (1) Fall Status: Acute (2) Head injury Status: Acute (3) Hip injury Status: Acute (4) Maxillary fracture Status: Acute (5) Orbital floor fracture Status: Acute (6) Radius fracture Status: Acute (7) Ulnar fracture Status: Acute (8) Macrocytic anemia Status: Acute (9) Pancytopenia Status: Acute (10) Elevated BP without diagnosis of hypertension Status: Acute - Assessment and Plan (Free Text) Plan: Continue B12 , Iron , Procrit , PT eval.
--- NOTE | 2017-05-13 13:20 | CP.PCM.PN ---
Subjective - Date & Time of Evaluation Date of Evaluation: 05/13/17 Time of Evaluation: 12:30 - Subjective Subjective: No complaints, feeling better Objective - Vital Signs/Intake and Output Vital Signs (last 24 hours): Temp Pulse Resp BP Pulse Ox 98.7 F 71 18 137/74 98 05/13/17 12:06 05/13/17 12:06 05/13/17 12:06 05/13/17 12:06 05/13/17 12:06 - Medications Medications: Current Medications Acetaminophen (Tylenol 325mg Tab) 650 mg PO Q6 PRN PRN Reason: Pain, moderate (4-7) Last Admin: 05/07/17 20:35 Dose: 650 mg Acetaminophen (Tylenol 325mg Tab) 325 mg PO Q4 PRN PRN Reason: Pain, Mild (1-3) Last Admin: 05/12/17 22:07 Dose: 325 mg Artificial Tears (Artificial Tears) 2 drop OU Q4 PRN PRN Reason: Dry eyes Last Admin: 05/12/17 09:07 Dose: 2 drop Cyanocobalamin (Vitamin B12 1000 Mcg/Ml Inj) 1,000 mcg IM DAILY [facility] Last Admin: 05/13/17 08:31 Dose: 1,000 mcg Epoetin Ifeanyi (Procrit) 10,000 unit SC MWF [facility] Last Admin: 05/12/17 09:06 Dose: 10,000 unit Hydromorphone HCl (Dilaudid) 0.5 mg IVP Q10M PRN PRN Reason: Pain, moderate (4-7) Iron Sucrose 100 mg/ Sodium (Chloride) 105 mls @ 105 mls/hr IVPB DAILY [facility] Last Admin: 05/13/17 12:02 Dose: 105 mls/hr Lactated Ringer's (Lactated Ringer's) 1,000 mls @ 125 mls/hr IV .Q8H [facility] Last Admin: 05/13/17 12:05 Dose: 125 mls/hr Valsartan (Diovan) 80 mg PO DAILY [facility] Last Admin: 05/13/17 08:31 Dose: 80 mg - Labs Labs: 05/13/17 05:30 05/13/17 05:30 PT 15.3 Seconds (9.8-13.1) H 05/12/17 05:30 INR 1.5 (0.9-1.2) H 05/12/17 05:30 APTT 28.9 Seconds (25.6-37.1) 05/12/17 05:30 - Head Exam Head Exam: ATRAUMATIC - Eye Exam Eye Exam: Normal appearance - ENT Exam ENT Exam: Mucous Membranes Dry - Respiratory Exam Respiratory Exam: NORMAL BREATHING PATTERN - Cardiovascular Exam Cardiovascular Exam: +S1, +S2 - GI/Abdominal Exam GI & Abdominal Exam: Normal Bowel Sounds Assessment and Plan (1) Pancytopenia Assessment & Plan: severe b12 deficiency on IM supplementation on procrit Status: Acute
[2017-05-13] MEDS: Artificial Tears Opht Soln OU PRN (20:48)
[2017-05-14] MEDS: Lactated Ringer's 1,000 ML IV SCH (05:45)
[2017-05-14] MEDS: EPOETIN ALFA 10,000 UNIT/ML ML SC SCH (08:09)
[2017-05-14 08:10] VITALS: BP 158/77; PULSE 61; RESP 18; TEMP 98.1; O2SAT 97
== END 2017-05-14 08:58 | disposition home or self-care (01) | DRG 563 ==
LOC: H.ER 10:56 → H.ERHOLD 14:19 → H.TEL 17:40
PROVIDERS: ADMIT Internal Medicine Pulmonary Disease; ATTEND Internal Medicine Pulmonary Disease
PROC: 30233N1 Transfusion of Nonautologous Red Blood Cells into Peripheral Vein, Percutaneous Approach (ICD-10-PCS; principal; 2017-05-08)
PROC: 0HBRXZZ Excision of Toe Nail, External Approach (ICD-10-PCS; 2017-05-11)
PROC: 0PSJXZZ Reposition Left Radius, External Approach (ICD-10-PCS; 2017-05-12)
DX: S52.572A Other intraarticular fracture of lower end of left radius, initial encounter for closed fracture (principal); D61.818 Other pancytopenia; D53.9 Nutritional anemia, unspecified; I65.29 Occlusion and stenosis of unspecified carotid artery; S02.32XA Fracture of orbital floor, left side, initial encounter for closed fracture; E53.8 Deficiency of other specified B group vitamins; S52.602A Unspecified fracture of lower end of left ulna, initial encounter for closed fracture; B35.1 Tinea unguium; S02.40DA Maxillary fracture, left side, initial encounter for closed fracture; I45.10 Unspecified right bundle-branch block; D50.9 Iron deficiency anemia, unspecified; W01.0XXA Fall on same level from slipping, tripping and stumbling without subsequent striking against object, initial encounter; Y93.9 Activity, unspecified; Y92.9 Unspecified place or not applicable; R03.0 Elevated blood-pressure reading, without diagnosis of hypertension; S79.912A Unspecified injury of left hip, initial encounter